=== PATIENT | female | born 1945 | race Caucasian/White ===

== ENCOUNTER → 2019-11-14 10:14 | Outpatient (BNVA) | payer MEDICARE, OTHER, SELFPAY | PROVIDERS: Family Provider Family Medicine; PCP Family Medicine; Visit Provider Family Medicine | DX: M25.552 Pain in left hip (principal) | CPT/HCPCS: 73502 ==

== ENCOUNTER 2019-11-14 13:48 | Outpatient (CLI) | payer MEDICARE, OTHER, SELFPAY ==
--- NOTE | 2019-11-14 13:30 | USCV_ITS ---
Sonya Yorklotte Age: 74 Gender: F : 1945 Exam Date: 11/14/2019 14:13 Ordering Phys: Vazquez Robins DO Technologist: Christopher Rawls Exam Location: [facility] [place] Indication: SWELLING HISTORY: Lower extremity swelling. PROCEDURES: Venous duplex imaging was performed in only the right lower extremity. The following venous structures were evaluated: common femoral vein, profunda vein, proximal portion of the greater saphenous vein, superficial femoral vein, and the popliteal vein. In addition, the posterior tibial and peroneal trunk were evaluated. Serial compression, augmentation maneuvers, and spectral Doppler flow evaluation were performed. FINDINGS: Normal 2-D Doppler and augmentation and compressibility throughout the lower extremity venous structures. Additional imaging through the proximal calf veins also reveals no thrombus. Limited evaluation of the greater saphenous vein is patent with no thrombus.. CONCLUSIONS Negative right lower extremity deep venous dopplerultrasound. Dr. Neha Campos MD (Electronically Signed) Final Date: 14 November 2019 15:15 S
== END 2019-11-14 13:49 | disposition home or self-care (01) ==
LOC: RAD 13:53
PROVIDERS: Family Provider Family Medicine; PCP Family Medicine; Visit Provider Family Medicine
DX: M79.89 Other specified soft tissue disorders (principal)
CPT/HCPCS: 93971

== ENCOUNTER 2020-01-04 06:00 | Outpatient (RCR) | payer MEDICARE, OTHER, SELFPAY | END 2020-01-29 23:59 | disposition home or self-care (01) | LOC: GPT 06:00 | PROVIDERS: Family Provider Family Medicine; PCP Family Medicine; Referring Provider Family Medicine; Visit Provider Family Medicine | DX: M25.552 Pain in left hip (principal); M25.652 Stiffness of left hip, not elsewhere classified | CPT/HCPCS: 97032; 97110; 97112; 97116; 97161; 97530; 97760 ==

== ENCOUNTER → 2020-01-18 14:00 | Outpatient (BNVA) | payer MEDICARE, OTHER, SELFPAY | PROVIDERS: Family Provider Family Medicine; PCP Family Medicine; Visit Provider Family Medicine | DX: R05 Cough (principal); E03.9 Hypothyroidism, unspecified | CPT/HCPCS: 84439; 84443 ==

== ENCOUNTER 2020-01-30 06:00 | Outpatient (RCR) | payer MEDICARE, OTHER, SELFPAY | END 2020-02-28 23:59 | disposition home or self-care (01) | LOC: GPT 06:00 | PROVIDERS: PCP Family Medicine; Visit Provider Family Medicine | DX: M25.552 Pain in left hip (principal); M25.652 Stiffness of left hip, not elsewhere classified | CPT/HCPCS: 80048; 97110; 97530 ==

== ENCOUNTER → 2020-06-11 14:00 | Outpatient (BNVA) | payer MEDICARE, OTHER, SELFPAY | PROVIDERS: PCP Family Medicine; Visit Provider Family Medicine | DX: M79.669 Pain in unspecified lower leg (principal); I82.4Z1 Acute embolism and thrombosis of unspecified deep veins of right distal lower extremity | CPT/HCPCS: 84550 ==

== ENCOUNTER 2020-07-11 11:20 | Outpatient (CLI) | payer MEDICARE, OTHER, SELFPAY ==
--- NOTE | 2020-07-11 11:36 | XR_ITS ---
WS: [id number] Chest with right rib detail, 07/11/2020 Clinical Data: R07.81 - Pleurodynia Comparison: PA and lateral chest, 09/22/2017. Findings: The lungs show no masses, or effusions. The heart is normal. No pneumonia or pneumothorax is seen. There is a small nodule at the right lung base unchanged. Aortic arch and descending aorta show tortu osity. The ribs are intact. No rib fractures seen. No subcutaneous emphysema is present. XR/XR ribs RT mn 3V w [id number] Impression: Negative chest with right rib detail.
== END 2020-07-11 11:21 | disposition home or self-care (01) ==
LOC: RAD 11:33
PROVIDERS: PCP Family Medicine; Visit Provider Family Medicine
DX: R07.81 Pleurodynia (principal)
CPT/HCPCS: 71101

== ENCOUNTER 2020-07-16 13:40 | Emergency (ER) | payer MEDICARE, OTHER, SELFPAY ==
[2020-07-16 14:00] VITALS: BP 119/74; PULSE 52; RESP 14; TEMP 36.8; O2SAT 94; BMI 35.5
--- NOTE | 2020-07-16 14:44 | W.ED.EXTPRO ---
HPI - Extremity Problem General: Chief complaint: Extremity Problem,Nontraumatic Stated complaint: phy ref/lumps in legs Time Seen by Provider: 07/16/20 14:44 History of Present Illness: HPI Narrative: Patient is a 75-year-old female comes to the ED with right lower extremity pain. Patient says symptoms started approximately 1 month ago after having a long car ride and traveling to [place]. She said since she started noticing that she was having some pain in the right calf with some swelling as well. She has been elevating her legs and says the swelling has went down but she still has tenderness to her right calf. Patient does have history of blood clots but is currently not on blood thinner and just takes aspirin daily. Denies any chest pain, shortness of breath, hemoptysis. Associated symptoms: Deny chest pain, fever(s) or rash Review of Systems Const: Denies: fever(s), chills or fatigue Eyes: Denies: change in vision or eye discomfort ENMT: Denies: throat pain, odynophagia, nasal discharge or nasal congestion Card: Denies: chest pain, palpitations, edema, swelling of feet/ankles, dyspnea on exertion or orthopnea Resp: Denies: dyspnea, productive cough or non-productive cough GI: Denies: abdominal pain, nausea, vomiting, diarrhea, constipation or hematochezia : Denies: flank pain, dysuria or hematuria Musc: Reports: extremity pain (Right leg?calf pain and swelling.) and extremity swelling (Right leg?calf swelling.); Denies: neck pain or back pain Skin/Breast: Denies: rash or new lesions Neuro: Denies: headache(s), numbness in extremities or weakness in extremities PFS ED PFSH: Social History Smoking and tobacco status: never smoked Alcohol intake: never Physical Exam Const: COMMON NORMALS: no acute distress, patient oriented x3 and alert GENERAL APPEARANCE: cooperative and comfortable HENMT: COMMON NORMALS: normocephalic HEAD & SCALP: normocephalic MOUTH: Normal oral and palatal mucosa present THROAT: posterior oropharynx normal and uvula midline Neck/C-Spine: COMMON NORMALS: supple GENERAL: Yes normal visual inspection Resp: COMMON NORMALS: normal respiratory effort, No retractions, No use of accessory muscles and clear to auscultation bilaterally AUSCULTATION: clear to auscultation bilaterally Cardio: COMMON NORMALS: regular rate, S1 normal heart sound present, S2 normal heart sound present, No gallops present (Cardio), No clicks present (Cardio) and No murmurs present (Cardio) RATE: regular rate RHYTHM: abnormal rhythm irregularly irregular HEART SOUNDS: S1 normal heart sound present and S2 normal heart sound present PERIPHERAL PULSES: dorsalis pedis present positive bilateral 1+ GI: COMMON NORMALS: Normal to inspection, nondistended, normoactive bowel sounds present, Soft to palpation, non-tender and no masses PALPATION: Yes Soft to palpation : COMMON NORMALS: Yes no CVA tenderness BLADDER/KIDNEY EXAM: Yes no CVA tenderness Back/Pelvis: COMMON NORMALS: no CVA tenderness Extremity: COMMON NORMALS: no pedal edema NARRATIVE EXTREMITY EXAM: Patient has 2 palpated nodules on right superior aspect of calf just behind the knee. Nodules are tender but no warmth or erythema. Nodules approximately 1 to 1.5 cm. Patient also had visible varicose veins on both right and left lower extremities. Neuro: COMMON NORMALS: patient oriented x3 and moves all extremities SENSORIUM/ORIENTATION: Yes alert Skin: GENERAL SKIN EXAM: dry skin Course Vital Signs: Vital signs: Vital Signs Temperature 98.2 F 07/16/20 14:00 Pulse Rate 52 L 07/16/20 14:00 Respiratory Rate 14 07/16/20 14:00 Blood Pressure 119/74 07/16/20 14:00 Pulse Oximetry 94 07/16/20 14:00 MDM - Extremity (Nontraumatic) MDM Narrative: Medical decision making narrative: Patient is a 75-year-old female comes to the ED with right calf pain and swelling. Patient has a history of blood clots but is not on any blood thinners currently. She denies any chest pain, shortness of breath or hemoptysis. Ultrasound venous duplex showed DVT in tibial vein. Patient was given Lovenox shot while here in the ED. She was sent home with a prescription for Lovenox and told to contact her PCP and set up an appointment within a week to reevaluate medical management for DVT treatment. Return ED precautions given. Patient understood agree with plan. Imaging Data^: US Vascular: Attestation: I personally reviewed and interpreted this imaging study as follows: Radiologist's impression: Ultrasound venous duplex of right lower extremity?prelim report superficial clots seen and also DVT identified as well. [address] [address] Ultrasound Report Signed Patient: Georgina York #: [id number] : 4Acct#:[id number] Age/Sex: 75 / FADM Date: 07/16/20 Loc: ERRoom/Bed: Attending Dr: Ordering Provider/Ordering MD: Juanito Arthur Date of Service: 07/16/20 Procedure(s): [place] [address] Accession Number(s): [id number] Report Number: [id number] Georgina York Age: 75 Gender: F : 1945 Exam Date: 07/16/2020 14:40 Ordering Phys: Juanito Arthur Technologist: Gi Byrne Exam Location: [facility] [place] Indication: LEG PAIN HISTORY: Lower extremity pain. PROCEDURES: Venous duplex imaging was performed in only the right lower extremity. The following venous structures were evaluated: common femoral vein, profunda vein, proximal portion of the greater saphenous vein, superficial femoral vein, and the popliteal vein. In addition, the posterior tibial and peroneal trunk were evaluated. Serial compression, augmentation maneuvers, and spectral Doppler flow evaluation were performed. FINDINGS: Partial thrombus seen within the anterial tibial vein near the peroneal trunk. Thrombus seen within superficial accessory vein below the knee. No additional DVT. CONCLUSIONS Anterior tibial vein DVT. Superficial thrombophlebitis below the knee. Dr. Pooja Regalado DO (Electronically Signed) Final Date: 16 July 2020 16:14 S Discharge Plan Discharge Patient Disposition: Home Clinical Impression: Deep vein thrombosis of lower extremity Qualifiers: Affected thrombotic vein of extremity: other lower extremity vein Chronicity: acute Laterality: right Qualified Code(s): I82.491 - Acute embolism and thrombosis of other specified deep vein of right lower extremity Condition: Stable Prescriptions: New Lovenox 150 mg/mL syringe 150 mg SUBCUT DAILY Qty: 10 RF: 0 No Action bisoprolol fumarate 5 mg tablet 5 mg PO DAILY RF: 0 cyanocobalamin (vitamin B-12) 1,000 mcg capsule 1,000 mcg PO DAILY RF: 0 PreserVision AREDS [id number] nrvb-ny-diuc capsule 1 cap PO BID RF: 0 Gaviscon 80-14.2 mg tablet,chewable 2 tab PO DAILY RF: 0 flecainide 50 mg tablet 50 mg PO Q12H RF: 0 allopurinol 100 mg tablet 100 mg PO DAILY Qty: 30 RF: 5 aspirin [Adult Low Dose Aspirin] 81 mg tablet,delayed release (DR/EC) 81 mg PO DAILY RF: 0 omega-3 fatty acids [Fish Oil Concentrate] 1,000 mg capsule 1,000 mg PO DAILY RF: 0 potassium chloride 10 mEq tablet extended release 10 meq PO DAILY RF: 0 furosemide 20 mg tablet 20 mg PO QAM RF: 0 levothyroxine 137 mcg tablet 137 mcg PO DAILY Qty: 90 RF: 3 Discharge Orders: Discharge Order (Routine); Ordered 07/16/20 Ordered By: Juanito Arthur Referrals: Vazquez Robins DO [Primary Care Provider] - Discharge Diet: Regular Discharge Activity: Resume usual activity Patient Instructions: Deep Venous Thrombosis (ED) Activity Restrictions/Additional Instructions: Follow-up with medical provider as directed. Contact your PCP and let them know that you are currently taking Lovenox and will need to be transitioned over to an oral anticoagulant within the next 5 to 7 days. Take medications as prescribed. Lovenox prescribed as 1 injection daily. Return to the ER or your medical provider if condition worsens. Please read and understand discharge instructions. If any questions, please ask. 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
[2020-07-16] MEDS: enoxaparin 100 mg/mL Syringe SUBCUT (16:02)
[2020-07-16] MEDS: enoxaparin 60 mg/0.6 mL Syringe 50 MG SUBCUT (16:03)
== END 2020-07-16 16:09 | disposition home or self-care (01) ==
PROVIDERS: Emergency Provider Physician Assistant; PCP Family Medicine
DX: I82.491 Acute embolism and thrombosis of other specified deep vein of right lower extremity (principal); Z79.82 Long term (current) use of aspirin
CPT/HCPCS: 12345; 93971; 96372; 99281; 99283; J1650

== ENCOUNTER 2020-08-14 12:46 | Outpatient (CLI) | payer MEDICARE, OTHER, SELFPAY ==
[2020-08-14 13:50] LABS: Basophils # 0.1 10^3/uL (0.0-0.1); Basophils % 0.9 %; Eosinophils # 0.1 10^3/uL (0.0-0.8); Eosinophils % 2.3 %; Hematocrit 40.9 % (37.0-47.0); Hemoglobin 12.7 g/dL (11.5-15.3); Lymphocytes # 2.2 10^3/uL (0.8-4.8); Lymphocytes % 38.1 %; Mean Corpuscular HGB Conc 31.1 g/dL (30.0-36.0); Mean Corpuscular Hemoglobin 29.5 pg (28.0-34.0); Mean Corpuscular Volume 94.9 fL (81-99); Mean Platelet Volume 9.9 fL (7.4-10.4); Monocytes # 0.6 10^3/uL (0.2-0.9); Monocytes % 10.6 %; Neutrophils % 47.9 %; Nucleated Red Blood Cells % 0 %; Platelet Count 279 10^3/cmm (130-400); Red Blood Count 4.31 10^6/uL (4.1-5.3); Red Cell Distribution Width 13.9 % (12.1-15.1); White Blood Count 5.6 10^3/uL (4.0-10.0)
[2020-08-14 14:12] LABS: NT Pro B Type Natriuretic Pept 266 pg/mL (0-450)
[2020-08-15 15:48] LABS: Anti-Double Strand DNA AB <1 IU/mL; Jo-1 Antibody <1.0 NEG AI (<1.0 NEG); SM/RNP Antibodies <1.0 NEG AI (<1.0 NEG); SS-B/LA IGG <1.0 NEG AI (<1.0 NEG); Scleroderma Ab(Scl-70) Ab <1.0 NEG AI (<1.0 NEG); Ss-A/Ro Igg <1.0 NEG AI (<1.0 NEG)
[2020-08-15 16:24] LABS: Alternaria Alternata (M6) Ige <0.10 kU/L; Alternaria Class 0; Bermuda Class 0; Bermuda Grass (G2) Ige <0.10 kU/L; Cat Dander (E1) Ige 0.32 kU/L; Cat Dander Class 0/1; Common Ragweed (Short) (W1) Ig <0.10 kU/L; D. Farinae Class 0; Dermatophagoides Class 0; Dermatophagoides Farinae (D2) <0.10 kU/L; Dermatophagoides Pteronyssinus <0.10 kU/L; Dog Dander Class 0/1; Elm (T8) Ige <0.10 kU/L; Elm Class 0; English Plantain (W9) Ige <0.10 kU/L; English Plantain Class 0; House Dust (Greer) (H1) Ige <0.10 kU/L; House Dust (Hollister- Stier) 0.16 kU/L; House Dust Class 0; House Dust Class 0/1; Immunoglobulin E 43 kU/L (<OR=114); Johnson Grass (G10) Ige <0.10 kU/L; Johnson Grass Cl 0; June Grass Class 0; June Grass(Kentucky Blue) (G8) <0.10 kU/L; Lamb'S Quarters (Goose Foot) <0.10 kU/L; Lamb'S Quarters Class 0; Maple (Box Elder) (T1) Ige <0.10 kU/L; Maple Class 0; Meadow Fescue (G4) Ige <0.10 kU/L; Meadow Fescue Class 0; Mucor Racemosus Class 0; Oak (T7) Ige <0.10 kU/L; Oak Class 0; Orchard Grass (Cocksfoot) (G3) <0.10 kU/L; Penicillium Class 0; Penicillium Notatum (M1) Ige <0.10 kU/L; Perennial Rye Grass (G5) Ige <0.10 kU/L; Perennial Rye Grass Class 0; Ragweeed Class 0; Rough Marsh Elder (W16) Ige <0.10 kU/L; Rough Marsh Elder Class 0; Sweet Vernal Class 0; Sweet Vernal Grass (G1) Ige <0.10 kU/L; Timothy Grass (G6) Ige <0.10 kU/L; Timothy Grass Class 0
[2020-08-16 22:08] LABS: Aspergillus Fumigatus, Igg Ab, 92.4 mg/L (<=102)
[2020-08-17 19:58] LABS: Aspergillus AG,EIA,Serum NOT DETECTED; Aspergillus Galactomannan Inde <0.50
[2021-10-22 08:39] LABS: Cytology Sputum (BBPL) See Report
== END 2020-08-14 12:47 | disposition home or self-care (01) ==
PROVIDERS: PCP Family Medicine; Visit Provider Internal Medicine Pulmonary Disease
DX: R05 Cough (principal)
CPT/HCPCS: 36415; 82785; 83880; 85025; 86003; 86225; 86235; 87305; 88112

== ENCOUNTER 2020-08-14 14:03 | Outpatient (CLI) | payer MEDICARE, OTHER, SELFPAY ==
--- NOTE | 2020-08-14 14:45 | CT_ITS ---
WS: [id number] CT scan of the chest without IV contrast, additional two-dimensional coronal and sagittal reconstruct ion was performed. Additional prone and supine chest 2 views with inspiration were performed. 020 Clinical Data: TO RULE OUT INTERSITIAL LUNG DISEASE Comparison: CT chest, 10/06/2017. DLP: 966.[address] scans at [facility] use at least one of these dose optimization techniques: automat ed exposure control; mA and/or kV adjustment per patient size (includes targeted exams where dose is matched to clinical indication); or iterative reconstruction. Findings: No air trapping could be seen. There was no evidence of any pneumonia or parenchymal disease. No pneu mothorax was seen. There are no blebs. No evidence of restrictive disease was seen. No nodules, masses or effusions are seen. The heart size is normal with no pericardial effusion. The pulmonary arterial system and thoracic aorta demonstrate no abnormalities or dilatations. There is no axillary or significant mediastinal adenopathy. The upper abdomen shows no abnormalities. Moderate degenerative arthritic change and degenerative dis c disease of the thoracic spine is seen. CT/CT chest wo con [id number] Impression: 1. Negative high-resolution CT scan of the chest with no evidence of air trappi ng, emphysema, parenchymal disease or restricted airway disease. 2. Negative for acute cardiopulmonary disease.
== END 2020-08-14 14:04 | disposition home or self-care (01) ==
LOC: RADWPI 14:06
PROVIDERS: PCP Family Medicine; Visit Provider Internal Medicine Pulmonary Disease
DX: R05 Cough (principal)
CPT/HCPCS: 36415; 71250; 82785; 83880; 85025; 86003; 86225; 86235; 87305

== ENCOUNTER 2020-08-28 09:50 | Outpatient (CLI) | payer MEDICARE, OTHER, SELFPAY ==
--- NOTE | 2020-08-28 10:32 | PFTS_ITS ---
Date of Study:08/28/20 Date of Dictation: MECHANICS: Forced vital capacity (FVC) is . Forced expiratory volume in one second (FEV1) is . FEV1/FVC is . FLOW VOLUME LOOP: . LUNG VOLUMES: Total lung capacity (TLC) is . Residual volume (RV) is . DIFFUSING CAPACITY FOR CARBON MONOXIDE: . INTERPRETATION: The pulmonary function tests are . mechanics and lung volumes. Gas exchange (DLCO) is . MTDD
[2020-08-28 10:37] VITALS: BP 124/68; BP 132/69
--- NOTE | 2020-08-28 12:49 | PFTS_ITS ---
Date of Study:08/28/2020 Date of Dictation: MECHANICS: Forced vital capacity (FVC) is normal. Forced expiratory volume in one second (FEV1) is normal. FEV1/FVC is normal. FLOW VOLUME LOOP: Normal. LUNG VOLUMES: Not measured DIFFUSING CAPACITY FOR CARBON MONOXIDE: Not measured. INTERPRETATION: The spirometry is normal. In fact, the patient has supranormal FEV1 and FVC values. MTDD
== END 2020-08-28 09:51 | disposition home or self-care (01) ==
LOC: RT 09:50
PROVIDERS: PCP Family Medicine; Visit Provider Internal Medicine Pulmonary Disease
DX: R05 Cough (principal)
CPT/HCPCS: 94060; 94618

== ENCOUNTER 2020-09-19 09:13 | Outpatient (CLI) | payer MEDICARE, OTHER, SELFPAY ==
--- NOTE | 2020-09-19 09:30 | USCV_ITS ---
Georgina York Age: 75 Gender: F : 1945 Exam Date: 09/19/2020 09:43 Ordering Phys: Abdoul Back M.D ([email or web address]) Technologist: Christopher Rawls Exam Location: [facility] – [place] Indication: CHRONIC DIASTOLIC HEART FAILURE BP: 108 / 65 HR: 53 Rhythm: Sinus Technical Quality: Fair MEASUREMENTS (Male / Female) Normal Values 2D ECHO LV Diastolic Diameter PLAX 3.9 cm 4.2 - 5.9 / 3.9 - 5.3 cm LV Systolic Diameter PLAX 2.7 cm IVS Diastolic Thickness 1.2 cm 0.6 - 1.0 / 0.6 - 0.9 cm IVS Systolic Thickness 1.6 cm LVPW Diastolic Thickness 1.4 cm 0.6 - 1.0 / 0.6 - 0.9 cm LVPW Systolic Thickness 2.3 cm LVOT Diameter 2.1 cm LV Ejection Fraction 2D Teich 59.0 % LV Ejection Fraction MOD 2C 51.6 % LV Ejection Fraction 2C AL 51.9 % LA Diameter 3.9 cm LA Width 4.2 cm LA Height 5.2 cm RA Width 4.0 cm RA Height 6.0 cm Aorta at Sinotubular Diameter 2.8 cm M-MODE LV Diastolic Diameter MM 6.5 cm 4.2 - 5.9 / 3.9 - 5.3 cm LV Systolic Diameter MM 4.1 cm LV Ejection Fraction MM Teich 65.4 % IVS Diastolic Thickness MM 1.0 cm 0.6 - 1.0 / 0.6 - 0.9 cm IVS Systolic Thickness MM 1.7 cm LVPW Diastolic Thickness MM 1.0 cm 0.6 - 1.0 / 0.6 - 0.9 cm LVPW Systolic Thickness MM 2.1 cm Aortic Annulus Diameter 4.0 cm LA Ao Ratio MM 1.0 MV E Point Septal Separation 0.7 cm DOPPLER AV Peak Velocity 146.3 cm/s LVOT Peak Velocity 96.7 cm/s AV Area Cont Eq vti 2.5 cm squared AV Area Cont Eq pk 2.3 cm squared MV Area PHT 2.7 cm squared Mitral E to A Ratio 0.8 MV E' Velocity 37.5 cm/s Mitral E to MV E' Ratio 5.1 Mitral E to LV E' Lateral Ratio 5.3 Mitral E to LV E' Septal Ratio 4.9 TR Peak Velocity 279.4 cm/s TR Peak Gradient 31.2 mmHg TR Mean Velocity 196.2 cm/s TR Mean Gradient 15.9 mmHg TR Velocity Time Integral 89.1 cm TV Peak E Velocity 106.0 cm/s Right Atrial Pressure 3.0 mmHg Pulmonary Artery Systolic Pressu 34.2 mmHg PV Peak Velocity 68.0 cm/s RV Acceleration Time 0.2 s RV Ejection Time 0.3 s RV AcT/ET 0.5 FINDINGS Left Ventricle Normal left ventricular size and systolic function, EF 66 %. No regional wall motion abnormalities. Mild left ventricular hypertrophy. Grade I/IV diastolic dysfunction (abnormal relaxation filling pattern), normal to mildly elevated filling pressures. Right Ventricle The right ventricle is normal in size and function. Right Atrium Mildly increased right atrial size. Left Atrium Mildly increased left atrial size. Mitral Valve Mild mitral valve regurgitation. Aortic Valve Minimally thickened aortic valve Tricuspid Valve Moderate tricuspid valve regurgitation. Pulmonic Valve Trace pulmonary valve regurgitation. Pericardium No pericardial effusion. Aorta Plaque seen in the ascending aorta. CONCLUSIONS Normal left ventricular size and systolic function, EF 66 %. No regional wall motion abnormalities. Mild left ventricular hypertrophy. Grade I/IV diastolic dysfunction (abnormal relaxation filling pattern), normal to mildly elevated filling pressures. Mild biatrial enlargement. Moderate tricuspid valve regurgitation. Estimated pulmonary artery peak systolic pressure of 34 mmHg Mild mitral valve regurgitation. There is no pericardial effusion. There are no intracardiac masses. No previous study is available for comparison. Dr Basim Fry MD FAC (Electronically Signed) Final Date: 20 September 2020 09:55 S
== END 2020-09-19 09:14 | disposition home or self-care (01) ==
LOC: US 09:17
PROVIDERS: PCP Family Medicine; Visit Provider Internal Medicine
DX: I50.32 Chronic diastolic (congestive) heart failure (principal); I08.1 Rheumatic disorders of both mitral and tricuspid valves
CPT/HCPCS: 93306

== ENCOUNTER 2020-09-27 12:52 | Outpatient (CLI) | payer MEDICARE, OTHER, SELFPAY | END 2020-09-27 12:53 | disposition home or self-care (01) | LOC: LAB 12:55 | PROVIDERS: PCP Family Medicine; Visit Provider Internal Medicine Pulmonary Disease | DX: R05 Cough (principal) | CPT/HCPCS: 36415; 86331; 86606; 86609 ==

== ENCOUNTER → 2021-01-23 14:35 | Outpatient (BNVA) | payer MEDICARE, OTHER, SELFPAY | PROVIDERS: PCP Family Medicine; Visit Provider Family Medicine | DX: E03.9 Hypothyroidism, unspecified (principal); R19.4 Change in bowel habit; M79.673 Pain in unspecified foot | CPT/HCPCS: 36415; 84439; 84443 ==

== ENCOUNTER → 2021-07-17 14:05 | Outpatient (BNVA) | payer MEDICARE, OTHER, SELFPAY | PROVIDERS: PCP Family Medicine; Visit Provider Podiatrist Foot & Ankle Surgery | DX: M79.671 Pain in right foot (principal); M21.41 Flat foot [pes planus] (acquired), right foot | CPT/HCPCS: 73630 ==

== ENCOUNTER 2021-10-30 13:24 | Outpatient (CLI) | payer MEDICARE, OTHER, SELFPAY ==
--- NOTE | 2021-10-30 13:46 | CT_ITS ---
WS: [id number] CT CHEST WITHOUT INTRAVENOUS CONTRAST HISTORY: R05 - Cough TECHNIQUE: Contiguous 5 mm axial imaging performed on the thorax. Coronal and sagittal reformats are submitted. All CT scans at [facility] use at least one of these dose optimization techniques: automated exposure control; mA and/or kV adjustment per patient size (includes targeted exams where dose is matched to clinical indication); or iterative reconstruction. CONTRAST: None DLP: 735.37 mGy.cm COMPARISON: 08/14/2020 Lungs and central airway: 2 mm nodule LEFT upper lobe, image 19 series 6 stable since 2018. 2 mm nodu le along the RIGHT major fissure towards the upper lobe is stable. Mild dependent changes at the LEFT lung base. No bronchiectasis or honeycombing. Mild pulmonary hyperexpansion. Pleura: Normal. No pleural effusion. Heart and pericardium: Mild cardiomegaly with no pericardial effusion. Mediastinum and david: No mediastinum or hilar adenopathy. Vessels: Normal size aortic and pulmonary artery. No coronary artery calcifications. Chest wall and lower neck: No soft tissue masses. Upper abdomen: Noncontrast evaluation of the abdominal structures demonstrates no abnormality. No adr enal mass. Osseous structures: Mild increase in thoracic kyphosis. Disc spaces are narrowed throughout. No fract ures. CT/CT chest wo con [id number] IMPRESSION: 1. No suspicious mass or pulmonary nodules. 2. No pneumonia. 3. Mild pulmonary hyperexpansion.
== END 2021-10-30 13:25 | disposition home or self-care (01) ==
LOC: RAD 13:24
PROVIDERS: PCP Family Medicine; Visit Provider Family Medicine
DX: R05.9 Cough, unspecified (principal)
CPT/HCPCS: 71250

== ENCOUNTER → 2022-01-07 12:41 | Outpatient (BNVA) | payer MEDICARE, OTHER, SELFPAY | PROVIDERS: PCP Family Medicine; Visit Provider Internal Medicine | DX: I48.91 Unspecified atrial fibrillation (principal); I82.441 Acute embolism and thrombosis of right tibial vein; I50.32 Chronic diastolic (congestive) heart failure; E03.9 Hypothyroidism, unspecified | CPT/HCPCS: 99214 ==

== ENCOUNTER → 2022-01-24 08:34 | Outpatient (BNVA) | payer MEDICARE, OTHER, SELFPAY | PROVIDERS: PCP Family Medicine; Visit Provider Family Medicine | DX: I50.9 Heart failure, unspecified (principal); E03.9 Hypothyroidism, unspecified; M10.9 Gout, unspecified | CPT/HCPCS: 80053; 80061; 84439; 84443; 84550; 85025 ==

== ENCOUNTER 2022-03-09 06:50 | Emergency (ER) | payer MEDICARE, OTHER, SELFPAY ==
--- NOTE | 2022-03-09 06:55 | ED_ITS ---
HPI - Extremity Injury (Upper) General: Chief Complaint: Extremity Injury, Upper Stated Complaint: Right wrist pain Time Seen by Provider: 03/09/22 06:54 History of Present Illness: Ms. York is a 76-year-old right handed lady who presents to the emergency department due to fall. She reports yesterday tripping on a walk which she typically takes and landed on her left knee and hip. She did not initially recall hand or wrist pain on the right side however since that time has had increased pain despite resolution of other pain. Denies preceding lightheadedness, dizziness, chest pain, shortness of breath. No head strike or loss of consciousness. She tried zxnv-ibh-uisymph medications without significant relief. Intensity symptoms is moderate to severe and throbbing and shooting pain. Denies paresthesias. Denies history of prior wrist injury on this extremity. No other specific changes in health, exacerbating, or alleviating factors identified. Onset (ago): day(s) Other injuries: none Severity: moderate Exacerbating factors: movement of extremity Review of Systems General: Reports: 10 or more systems reviewed and unremarkable except in HPI and below PFSH ED PFSH: Medical History GERD (gastroesophageal reflux disease) Surgical History H/O total hysterectomy H/O vascular surgery History of cataract extraction History of foot surgery left History of tonsillectomy History of total knee arthroplasty bilateral Social History Smoking and tobacco status: never smoked Second hand smoke exposure: Yes Smoking risk assessment/counseling performed?: No Alcohol intake: never Lives independently: Yes Household members: spouse Housing: House Marital status: Current occupational status: retired Pets and animals: No History of recent travel: No Current gender identity: Female Special lima needs: No Physical Exam Const: COMMON NORMALS: alert GENERAL APPEARANCE: cooperative and well developed HENMT: COMMON NORMALS: normocephalic and atraumatic HEAD & SCALP: normocephalic and atraumatic Eye: COMMON NORMALS: conjunctivae normal CONJUNCTIVA: Yes conjunctivae normal SCLERA: sclerae normal Neck/C-Spine: COMMON NORMALS: supple GENERAL: Yes trachea midline Resp: COMMON NORMALS: normal respiratory effort EFFORT & INSPECTION: Yes able to speak in complete sentences Cardio: COMMON NORMALS: regular rate and regular rhythm RATE: regular rate RHYTHM: regular rhythm GI: COMMON NORMALS: Soft to palpation PALPATION: Yes Soft to palpation and No Tenderness to palpation present (GI) PERCUSSION: normal to percussion Extremity: NARRATIVE EXTREMITY EXAM: Wrist tenderness palpation more significant on radial aspect. No snuffbox tenderness. Distal CMS intact. Limited range of motion secondary to pain. No obvious deformity. No contusion or overlying skin changes GENERAL: Yes normal exam except as noted and No edema Neuro: COMMON NORMALS: moves all extremities SENSORIUM/ORIENTATION: Yes alert and No Orientation impaired Psych: COMMON NORMALS: mental status grossly normal and Normal thought process present THOUGHT PROCESS: Normal thought process present Course ED course: - Patient was seen and evaluated by me at bedside -Vital signs obtained - Initial evaluation notable for exam as above. analgesia given -Xrays personally interpreted by me - Imaging notable for no acute fracture, age-indeterminate scapholunate ligamentous injury - Upon serial reexamination after treatment the patient was improved - Based on patient history, evaluation, and testing as interpreted the most likely cause of the patient's condition is fall with wrist pain - The results of ED evaluation were discussed with the patient including prescriptions and/or symptomatic cares (if applicable) including appropriate and responsible use, followup plan, and return precautions. The patient verbalized understanding and felt safe for discharge. - Patient discharged in satisfactory condition. Note: Click bubbles or prepopulated villalta in note writing are used for assistance with data collection and billing and are inherently more limited than narrative and other text portions of this note. Please use narrative for additional clinical history and defer to narrative/free test for any case of contradictory information. If information appears in only free text or click bubble it should be considered present or absent as reported. Please contact note writer technical publications for clarifications of clinical information or contradictory information. MDM is a brief summary, contradictory or erroneous seeming information should be clarified and full note should be reviewed. Vital Signs: Vital signs: Vital Signs Temperature 98 F 03/09/22 06:56 Pulse Rate 57 L 03/09/22 09:53 Respiratory Rate 22 H 03/09/22 06:56 Blood Pressure 156/77 03/09/22 09:53 Pulse Oximetry 97 03/09/22 09:53 MDM - Extremity Injury (Upper) Medical Decision Making 76-year-old lady presenting with mechanical fall and wrist pain. X-rays with age-indeterminate scapholunate ligamentous injury. Patient placed in splint and satisfactory for outpatient orthopedic follow-up. Medical Records I reviewed the patient's medical records. Lab Data I reviewed the patient's lab results. Radiology Impressions Wrist X-Ray 03/09/22 07:08 IMPRESSION: 1. Primary osteoarthritis. 2. No acute bony fracture identified. 3. Scapholunate ligamentous injury, indeterminate age. Clinical correlation is recommended. Discharge Plan Discharge Patient Disposition: Home Clinical Impression: Fall, Acute wrist pain, Scapholunate ligament injury, no instability Condition: Stable Prescriptions: New oxycodone 5 mg tablet 5 mg PO Q4H PRN (Reason: pain) Qty: 20 0RF No Action PreserVision AREDS [id number] snyc-pc-bnne capsule 1 cap PO BID 0RF Eliquis 5 mg tablet 5 mg PO BID Qty: 180 3RF furosemide 20 mg tablet 20 mg PO QAM Qty: 90 3RF potassium chloride 10 mEq tablet extended release 10 meq PO DAILY Qty: 90 3RF omega-3 fatty acids [Fish Oil Concentrate] 1,000 mg capsule 1,000 mg PO DAILY 0RF omeprazole 20 mg tablet,delayed release (DR/EC) 20 mg PO BID 0RF cholecalciferol (vitamin D3) 50 mcg (2,000 unit) capsule 50 mcg PO DAILY 0RF (DME) custom orthotics See Rx Instructions .ROUTE .MEDSUPPLY Qty: 1 0RF Rx Instructions: As directed naproxen 500 mg tablet 500 mg PO BID Qty: 60 0RF (DME) custom orthotics See Rx Instructions .ROUTE .MEDSUPPLY Qty: 1 0RF Rx Instructions: As directed levothyroxine 137 mcg tablet 137 mcg PO DAILY Qty: 90 3RF (DME) Thumb spica (off shelf) See Rx Instructions .Route .MEDSUPPLY Qty: 1 0RF Rx Instructions: As directed bisoprolol fumarate 5 mg tablet 5 mg PO DAILY Qty: 90 3RF Discharge Orders: Discharge ED (Routine); Ordered 03/09/22 Ordered By: Austyn Rodriguez Referrals: Vazquez Robins, [Primary Care Provider] - Discharge Diet: Usual diet Discharge Activity: Increase activity as tolerated Patient Instructions: Wrist Injury (ED), Splint Care (ED), Opioid Safety Activity Restrictions/Additional Instructions: Thank you for visiting the emergency department. You were seen and evaluated for fall with wrist injury. The exact cause of your symptoms is unclear though there may be a ligamentous injury in your wrist. I will message case management for follow-up. You were placed in splint, please wear this until follow-up. You should use Tylenol and ibuprofen for pain control however please do not exceed the daily recommended dosage. I will also prescribe oxycodone, as discussed this can cause sedation which you should be cautious with. Additional common side effects including balance difficulty and constipation. If taking ibuprofen please continue your omeprazole. Please do not exceed the daily recommended dosage of any medication and please keep in mind that many namebrand medications contain the same active ingredients. Return to the emergency department for uncontrolled pain, any sensory or motor changes, changes in the color of your fingers, or anything else that you are concerned about a feel needs emergency department evaluation. Coding Level of Care Code ED Automotive Drivability Technician for Sophie Mancini Exam Comprehensive
[2022-03-09 06:56] VITALS: BP 163/88; PULSE 66; RESP 22; TEMP 36.6; O2SAT 97; BMI 35.5
[2022-03-09 07:01] VITALS: PULSE 67; O2SAT 99
--- NOTE | 2022-03-09 07:08 | XRR_ITS ---
PROCEDURE INFORMATION: Exam: XR Right Wrist Exam date and time: 03/09/2022 7:22 AM Age: 76 years old Clinical indication: Injury or trauma; Fall; Blunt trauma (contusions or hematomas); Wrist; Right; Additional info: Fall, radial side pain TECHNIQUE: Imaging protocol: Radiologic exam of the Right wrist. Views: Frontal, lateral, and oblique, 3 views. COMPARISON: No relevant prior studies available. FINDINGS: Bones/joints: There is narrowing, subchondral sclerosis and marginal hypertrophy of the medial first carpometacarpal articulation. Articular marginal hypertrophy and subchondral sclerosis of the trapezioscaphoid articulation. No acute bony abnormality identified. The radiocarpal, intercarpal and carpometacarpal alignment is unremarkable. Scapholunate interval widening to 2.8 mm. 5.6 mm lateral lunate cancellous bone cyst. 8.5 mm proximal capitate cancellous bone cyst. Soft tissues: Anterior and posterior moderate soft tissue swelling. XR/XR wrist RT min 3V* [id number] IMPRESSION: 1. Primary osteoarthritis. 2. No acute bony fracture identified. 3. Scapholunate ligamentous injury, indeterminate age. Clinical correlation is recommended.
[2022-03-09] MEDS: morphine 4 mg/mL SDV 1 mL IM (07:23)
[2022-03-09 08:00] VITALS: BP 114/86; PULSE 60; O2SAT 100
[2022-03-09] MEDS: oxyCODONE 5 mg IR Tab/Cap PO (08:11)
[2022-03-09] MEDS: ketorolac 30 mg/mL INJ IM (08:11)
[2022-03-09] MEDS: acetaminophen 500 mg Tablet 1000 MG PO (08:11)
[2022-03-09 09:00] VITALS: BP 134/60; PULSE 57; O2SAT 96
[2022-03-09 09:53] VITALS: BP 156/77; PULSE 57; O2SAT 97
--- NOTE | 2022-03-11 12:38 | DCPLANNER ---
Addendum entered by Selena Huntley 03/24/22 17:28: Patient had a follow up appointment scheduled for 03.13.22 with Angus Rodríguez at ortho - patient did attend appointment. Original Note: design project manager had message to schedule a follow up appointment for patient with ortho. design project manager sent patients information to the front office staff at ortho. Patients information will be printed and reviewed. Clinic will call patient with appointment information.
== END 2022-03-09 09:50 | disposition home or self-care (01) ==
PROVIDERS: Emergency Provider Emergency Medicine; PCP Family Medicine
DX: S69.81XA Other specified injuries of right wrist, hand and finger(s), initial encounter (principal); Z79.01 Long term (current) use of anticoagulants; Z77.22 Contact with and (suspected) exposure to environmental tobacco smoke (acute) (chronic); W01.0XXA Fall on same level from slipping, tripping and stumbling without subsequent striking against object, initial encounter
CPT/HCPCS: 29125; 73110; 96372; 99284; J1885; J2270

== ENCOUNTER → 2022-03-13 08:05 | Outpatient (BNVA) | payer MEDICARE, OTHER, SELFPAY | PROVIDERS: PCP Family Medicine; Referring Provider Emergency Medicine; Visit Provider Physician Assistant | DX: M18.11 Unilateral primary osteoarthritis of first carpometacarpal joint, right hand (principal); M25.539 Pain in unspecified wrist | CPT/HCPCS: 73110; 99203 ==

== ENCOUNTER 2022-03-13 11:23 | Outpatient (CLI) | payer MEDICARE, OTHER, SELFPAY | END 2022-03-13 11:24 | disposition home or self-care (01) | LOC: SPT 11:24 | PROVIDERS: PCP Family Medicine; Visit Provider Physician Assistant | DX: Z46.89 Encounter for fitting and adjustment of other specified devices (principal); S63.591D Other specified sprain of right wrist, subsequent encounter; X58.XXXD Exposure to other specified factors, subsequent encounter | CPT/HCPCS: 97760; L3809 ==

== ENCOUNTER → 2022-03-27 08:30 | Outpatient (BNVA) | payer MEDICARE, OTHER, SELFPAY | PROVIDERS: PCP Family Medicine; Visit Provider Physician Assistant | DX: M19.031 Primary osteoarthritis, right wrist; M16.12 Unilateral primary osteoarthritis, left hip; M70.62 Trochanteric bursitis, left hip; M25.562 Pain in left knee | CPT/HCPCS: 73100; 73502; 73590; 99214 ==

== ENCOUNTER → 2022-07-22 15:29 | Outpatient (BNVA) | payer MEDICARE, OTHER, SELFPAY | PROVIDERS: PCP Family Medicine; Visit Provider Internal Medicine | DX: I48.91 Unspecified atrial fibrillation (principal); Z79.01 Long term (current) use of anticoagulants; I82.441 Acute embolism and thrombosis of right tibial vein; I50.32 Chronic diastolic (congestive) heart failure; E03.9 Hypothyroidism, unspecified | CPT/HCPCS: 99213 ==

== ENCOUNTER 2022-11-15 20:51 | Emergency (ER) | payer MEDICARE, OTHER, SELFPAY ==
[2022-11-15 21:18] VITALS: BP 159/88; PULSE 64; RESP 20; TEMP 36.8; O2SAT 96; BMI 37.1
--- NOTE | 2022-11-15 21:39 | XRR_ITS ---
PROCEDURE INFORMATION: Exam: XR Left Humerus Exam date and time: 11/15/2022 9:44 PM Age: 77 years old Clinical indication: Injury or trauma; Fall; Blunt trauma (contusions or hematomas); Arm, upper; Left TECHNIQUE: Imaging protocol: Radiologic exam of the left humerus. Views: 2 or more views. COMPARISON: No relevant prior studies available. FINDINGS: Bones/joints: There is a mildly displaced comminuted fracture of the left proximal humerus. No evidence of intra-articular extension. No dislocation. Swelling of the surrounding soft tissues is present. Soft tissues: See Bones/joints finding. XR/[place] [id number] IMPRESSION: Mildly displaced comminuted fracture of the left proximal humerus.
[2022-11-15 21:45] VITALS: RESP 16; O2SAT 95
[2022-11-15] MEDS: morphine 4 mg/mL SDV 1 mL IM (21:45)
--- NOTE | 2022-11-15 22:01 | W.ED.FALL ---
HPI - Fall General: Chief Complaint: Fall Stated Complaint: Left should pain, fall Time Seen by Provider: 11/15/22 21:21 History of Present Illness: This 77-year-old female presents to the ER for evaluation of left arm pain following a fall. She was carrying boxes at home when she tripped and landed on the left side of the body. Patient denies head injury or loss of consciousness. She was able to get up, mobilize without support and she denies any other additional injuries. She is clinically stable. Review of Systems General: Reports: 10 or more systems reviewed and unremarkable except in HPI and below Musc: Reports: other (Pain with limitation of movement of left arm.) PFSH ED PFSH: Medical History GERD (gastroesophageal reflux disease) Surgical History H/O total hysterectomy H/O vascular surgery History of cataract extraction History of foot surgery left History of tonsillectomy History of total knee arthroplasty bilateral Social History Smoking and tobacco status: never smoked Second hand smoke exposure: Yes Smoking risk assessment/counseling performed?: No Alcohol intake: never Lives independently: Yes Household members: spouse Housing: House Marital status: Current occupational status: retired Pets and animals: No Current gender identity: Female Special lima needs: No Physical Exam Const: COMMON NORMALS: no acute distress, patient oriented x3, no limitations and alert HENMT: COMMON NORMALS: normocephalic HEAD & SCALP: normocephalic Neck/C-Spine: COMMON NORMALS: full ROM and supple Chest: COMMONS NORMALS: normal inspection of the chest Resp: COMMON NORMALS: normal respiratory effort, No retractions, No use of accessory muscles and clear to auscultation bilaterally AUSCULTATION: clear to auscultation bilaterally Cardio: COMMON NORMALS: regular rate, regular rhythm and No murmurs present (Cardio) RATE: regular rate RHYTHM: regular rhythm GI: COMMON NORMALS: Normal to inspection, nondistended, normoactive bowel sounds present and non-tender : COMMON NORMALS: Yes no CVA tenderness BLADDER/KIDNEY EXAM: Yes no CVA tenderness Back/Pelvis: COMMON NORMALS: no CVA tenderness and no thoracic nor lumbar tenderness Extremity: GENERAL: Yes normal exam except as noted OTHER: Limitation of movement of left arm. No distal neurovascular deficit. Neuro: COMMON NORMALS: patient oriented x3 and no focal motor deficits SENSORIUM/ORIENTATION: Yes alert Psych: COMMON NORMALS: mental status grossly normal and cooperative Course Vital Signs: Vital signs: Vital Signs Temperature 98.2 F 11/15/22 21:18 Pulse Rate 64 11/15/22 21:18 Respiratory Rate 16 11/15/22 21:45 Blood Pressure 159/88 11/15/22 21:18 Pulse Oximetry 95 11/15/22 21:45 Oxygen Delivery Me thod 11/15/22 21:18 MDM - Fall Medical Decision Making Medical decision making: History as above. X-ray reveals a mildly displaced comminuted fracture of the left proximal humerus. Case discussed with Dr. Munoz who advised arm sling and discharging patient home. He will follow-up with patient in the office. Patient was given a prescription for pain medications. Lab Data Radiology Impressions Humerus X-Ray 11/15/22 21:39 IMPRESSION: Mildly displaced comminuted fracture of the left proximal humerus. Discharge Plan Discharge Patient Disposition: Home Clinical Impression: Fracture of humerus, proximal, left, closed Condition: Stable Prescriptions: New hydrocodone-acetaminophen 5-325 mg tablet 1 tab PO Q6H PRN (Reason: pain) Qty: 20 0RF No Action PreserVision AREDS [id number] khdj-es-pjnn capsule 1 cap PO BID omega-3 fatty acids [Fish Oil Concentrate] 1,000 mg capsule 1,000 mg PO DAILY omeprazole 20 mg tablet,delayed release (DR/EC) 20 mg PO BID cholecalciferol (vitamin D3) 50 mcg (2,000 unit) capsule 50 mcg PO DAILY naproxen 500 mg tablet 500 mg PO BID Qty: 60 0RF levothyroxine 137 mcg tablet 137 mcg PO DAILY Qty: 90 3RF (DME) Thumb spica (off shelf) See Rx Instructions .Route .MEDSUPPLY Qty: 1 0RF Rx Instructions: As directed Eliquis 5 mg tablet 5 mg PO BID Qty: 180 3RF furosemide 20 mg tablet 20 mg PO QAM Qty: 90 3RF potassium chloride 10 mEq tablet extended release 10 meq PO DAILY Qty: 90 3RF bisoprolol fumarate 5 mg tablet 5 mg PO DAILY Qty: 90 3RF Discharge Orders: Discharge ED (Routine); Ordered 11/15/22 Ordered By: Sandra Tijerina Referrals: Vazquez Robins DO [Primary Care Provider] - Discharge Diet: Usual diet Discharge Activity: Resume usual activity Patient Instructions: Opioid Safety, Pain Management Activity Restrictions/Additional Instructions: Take Pedro as needed for pain. Utilize the arm sling provided until you see the orthopedic surgeon. Call Dr. Souza's office at [phone] to schedule a follow-up appointment. Return if you develop new or worsening symptoms. Coding Level of Care Code ED Ice Cream Machine Operator for Sophie Mancini
--- NOTE | 2022-11-15 22:59 | PC.NURSE ---
Patient sent home with [place] per MD order.
[2022-11-15 23:11] VITALS: BP 130/73; PULSE 16; RESP 16; O2SAT 95
--- NOTE | 2022-11-17 09:30 | DCPLANNER ---
Addendum entered by Selena Huntley 11/19/22 08:42: Patient had a follow up appointment scheduled with ortho - patient did attend appointment. Addendum entered by Selena Huntley 11/18/22 08:23: Patient has a follow up appointment scheduled for Friday, November 18, 2022 at 3:45 with Angus at ortho. Clinic will call patient with appointment information. Original Note: manager wellness had message to schedule a follow up appointment for patient with ortho. manager wellness sent patients information to the front office staff at ortho. Patients information will be printed and reviewed. Clinic will call patient with appointment information.
== END 2022-11-15 23:08 | disposition home or self-care (01) ==
PROVIDERS: Emergency Provider Family Medicine; PCP Family Medicine
DX: S42.202A Unspecified fracture of upper end of left humerus, initial encounter for closed fracture (principal); Z79.01 Long term (current) use of anticoagulants; W01.0XXA Fall on same level from slipping, tripping and stumbling without subsequent striking against object, initial encounter
CPT/HCPCS: 73060; 96372; 99284; J2270

== ENCOUNTER → 2022-11-18 16:05 | Outpatient (BNVA) | payer MEDICARE, OTHER, SELFPAY | PROVIDERS: PCP Family Medicine; Visit Provider Physician Assistant | DX: S42.202A Unspecified fracture of upper end of left humerus, initial encounter for closed fracture (principal); X58.XXXA Exposure to other specified factors, initial encounter | CPT/HCPCS: 73060; 99213 ==

== ENCOUNTER → 2022-12-02 13:33 | Outpatient (BNVA) | payer MEDICARE, OTHER, SELFPAY | PROVIDERS: PCP Family Medicine; Visit Provider Physician Assistant | DX: S42.202A Unspecified fracture of upper end of left humerus, initial encounter for closed fracture (principal); W01.198A Fall on same level from slipping, tripping and stumbling with subsequent striking against other object, initial encounter | CPT/HCPCS: 73060; 99213 ==

== ENCOUNTER → 2022-12-15 13:32 | Outpatient (BNVA) | payer MEDICARE, OTHER, SELFPAY | PROVIDERS: PCP Family Medicine; Visit Provider Family Medicine | DX: M10.9 Gout, unspecified (principal); E03.9 Hypothyroidism, unspecified; I50.9 Heart failure, unspecified | CPT/HCPCS: 80053; 84439; 84443; 84550; 85025 ==

== ENCOUNTER → 2022-12-16 13:01 | Outpatient (BNVA) | payer MEDICARE, OTHER, SELFPAY | PROVIDERS: PCP Family Medicine; Visit Provider Physician Assistant | DX: S42.202A Unspecified fracture of upper end of left humerus, initial encounter for closed fracture (principal); X58.XXXA Exposure to other specified factors, initial encounter | CPT/HCPCS: 72170; 73060; 99213 ==

== ENCOUNTER 2022-12-26 06:00 | Outpatient (RCR) | payer MEDICARE, OTHER, SELFPAY | END 2022-12-28 23:59 | disposition home or self-care (01) | LOC: GPT 06:00 | PROVIDERS: Visit Provider Physician Assistant | DX: S42.92XA Fracture of left shoulder girdle, part unspecified, initial encounter for closed fracture (principal); X58.XXXA Exposure to other specified factors, initial encounter | CPT/HCPCS: 97110; 97140; 97161 ==

== ENCOUNTER 2022-12-29 06:00 | Outpatient (RCR) | payer MEDICARE, OTHER, SELFPAY | END 2023-01-28 23:59 | disposition home or self-care (01) | LOC: GPT 06:00 | PROVIDERS: Visit Provider Physician Assistant | DX: M76.821 Posterior tibial tendinitis, right leg (principal) | CPT/HCPCS: 97110; 97112; 97140; 99213 ==

== ENCOUNTER 2022-12-29 14:19 | Outpatient (CLI) | payer MEDICARE, OTHER, SELFPAY | END 2022-12-29 14:20 | disposition home or self-care (01) | LOC: SPT 14:20 | PROVIDERS: Visit Provider Podiatrist Foot & Ankle Surgery | DX: Z46.89 Encounter for fitting and adjustment of other specified devices (principal); M76.821 Posterior tibial tendinitis, right leg | CPT/HCPCS: 97760; L1902 ==

== ENCOUNTER → 2023-01-13 13:53 | Outpatient (BNVA) | payer MEDICARE, OTHER, SELFPAY | PROVIDERS: Visit Provider Physician Assistant | DX: S42.202A Unspecified fracture of upper end of left humerus, initial encounter for closed fracture (principal); X58.XXXA Exposure to other specified factors, initial encounter | CPT/HCPCS: 73030; 99213 ==

== ENCOUNTER → 2023-01-21 15:06 | Outpatient (BNVA) | payer MEDICARE, OTHER, SELFPAY | PROVIDERS: Visit Provider Internal Medicine | DX: I48.91 Unspecified atrial fibrillation (principal); I82.441 Acute embolism and thrombosis of right tibial vein; I50.32 Chronic diastolic (congestive) heart failure; E03.9 Hypothyroidism, unspecified; Z79.01 Long term (current) use of anticoagulants | CPT/HCPCS: 99214 ==

== ENCOUNTER → 2023-01-23 14:01 | Outpatient (BNVA) | payer MEDICARE, OTHER, SELFPAY | PROVIDERS: Visit Provider Internal Medicine | DX: I50.9 Heart failure, unspecified (principal) | CPT/HCPCS: 80048; 83880 ==

== ENCOUNTER 2023-01-29 06:00 | Outpatient (RCR) | payer MEDICARE, OTHER, SELFPAY | END 2023-02-27 23:59 | disposition home or self-care (01) | LOC: GPT 06:00 | PROVIDERS: Visit Provider Physician Assistant | DX: M76.821 Posterior tibial tendinitis, right leg (principal) | CPT/HCPCS: 97110; 97140; 97164 ==

== ENCOUNTER 2023-02-10 06:00 | Outpatient (RCR) | payer MEDICARE, OTHER, SELFPAY | END 2023-02-27 23:59 | disposition home or self-care (01) | LOC: GPT 06:00 | PROVIDERS: Visit Provider Podiatrist Foot & Ankle Surgery | DX: M25.571 Pain in right ankle and joints of right foot (principal) | CPT/HCPCS: 97110; 97112; 97140; 97161 ==

== ENCOUNTER → 2023-02-24 08:59 | Outpatient (BNVA) | payer MEDICARE, OTHER, SELFPAY | PROVIDERS: Visit Provider Physician Assistant | DX: S42.202D Unspecified fracture of upper end of left humerus, subsequent encounter for fracture with routine healing (principal); X58.XXXD Exposure to other specified factors, subsequent encounter | CPT/HCPCS: 73030; 99213 ==

== ENCOUNTER 2023-02-28 06:00 | Outpatient (RCR) | payer MEDICARE, OTHER, SELFPAY | END 2023-03-30 23:59 | disposition home or self-care (01) | LOC: GPT 06:00 | PROVIDERS: Visit Provider Podiatrist Foot & Ankle Surgery | DX: M25.571 Pain in right ankle and joints of right foot (principal) | CPT/HCPCS: 97110; 97112; 97140; 97164; 97530 ==

== ENCOUNTER 2023-03-31 06:00 | Outpatient (RCR) | payer MEDICARE, OTHER, SELFPAY | END 2023-04-30 23:59 | disposition home or self-care (01) | LOC: GPT 06:00 | PROVIDERS: Visit Provider Podiatrist Foot & Ankle Surgery | DX: M25.571 Pain in right ankle and joints of right foot (principal) | CPT/HCPCS: 97110; 97140; 97530; 97535 ==

== ENCOUNTER → 2023-04-27 08:59 | Outpatient (BNVA) | payer MEDICARE, OTHER, SELFPAY | PROVIDERS: Visit Provider Podiatrist Foot & Ankle Surgery | DX: M76.821 Posterior tibial tendinitis, right leg (principal) | CPT/HCPCS: 99213 ==

== ENCOUNTER 2023-06-03 13:46 | Outpatient (CLI) | payer MEDICARE, OTHER, SELFPAY ==
--- NOTE | 2023-06-03 06:27 | MM_ITS ---
WS: [id number] BILATERAL 3D TOMOSYNTHESIS DIGITAL SCREENING MAMMOGRAPHY WITH CAD CLINICAL INFORMATION: SCREENING HISTORY: Screening mammogram. No current complaints. COMPARISON: 2020 TECHNIQUE: Bilateral CC and MLO views. FINDINGS: Scattered fibroglandular densities bilaterally. No suspicious focal mass, asymmetry, calcifications, or architectural distortion. No evidence of malignancy. Incidental punctate calcifications. IMPRESSION: MM/[place] [id number] BI-RADS: 2-Benign FOLLOW UP: 1 Year Follow-up Recommend return to annual screening mammography.
== END 2023-06-03 13:47 | disposition home or self-care (01) ==
LOC: MOBLMAM 13:49
PROVIDERS: Visit Provider Nurse Practitioner
DX: Z12.31 Encounter for screening mammogram for malignant neoplasm of breast (principal)
CPT/HCPCS: 77063; 77067

== ENCOUNTER → 2023-07-28 07:15 | Outpatient (BNVA) | payer MEDICARE, OTHER, SELFPAY | PROVIDERS: Visit Provider Podiatrist Foot & Ankle Surgery | DX: M76.821 Posterior tibial tendinitis, right leg | CPT/HCPCS: 99213 ==

== ENCOUNTER → 2023-07-31 10:32 | Outpatient (BNVA) | payer MEDICARE, OTHER, SELFPAY | PROVIDERS: Visit Provider Nurse Practitioner Family | DX: I50.32 Chronic diastolic (congestive) heart failure (principal) | CPT/HCPCS: 99213 ==

== ENCOUNTER → 2023-11-24 08:01 | Outpatient (BNVA) | payer MEDICARE, OTHER, SELFPAY | PROVIDERS: PCP Nurse Practitioner; Referring Provider Nurse Practitioner; Visit Provider Student in an Organized Health Care Education/Training Program | DX: M75.41 Impingement syndrome of right shoulder | CPT/HCPCS: 20610; 73030; 99214; J3301 ==

== ENCOUNTER → 2024-01-19 13:49 | Outpatient (BNVA) | payer MEDICARE, OTHER, SELFPAY | PROVIDERS: PCP Nurse Practitioner; Visit Provider Internal Medicine | DX: I48.91 Unspecified atrial fibrillation (principal); I82.441 Acute embolism and thrombosis of right tibial vein; I50.32 Chronic diastolic (congestive) heart failure; E03.9 Hypothyroidism, unspecified; Z79.01 Long term (current) use of anticoagulants | CPT/HCPCS: 99213; 99214 ==

== ENCOUNTER → 2024-03-21 08:23 | Outpatient (BNVA) | payer MEDICARE, OTHER, SELFPAY | PROVIDERS: PCP Nurse Practitioner; Visit Provider Podiatrist Foot & Ankle Surgery | DX: M76.821 Posterior tibial tendinitis, right leg | CPT/HCPCS: 99213 ==

== ENCOUNTER 2024-11-15 09:05 | Outpatient (CLI) | payer MEDICARE, OTHER, SELFPAY ==
--- NOTE | 2024-11-15 09:20 | MM_ITS ---
WS: [id number] BILATERAL 3D TOMOSYNTHESIS DIGITAL SCREENING MAMMOGRAPHY WITH CAD CLINICAL INFORMATION: SCREENING HISTORY: Screening mammogram. No current complaints. COMPARISON: 2022 TECHNIQUE: Bilateral CC and MLO views. FINDINGS: Scattered fibroglandular densities bilaterally. No suspicious focal mass, asymmetry, calcifications, or architectural distortion. No evidence of malignancy. Incidental punctate and skin calcifications MM/MM scr tomosynthesis [id number] IMPRESSION: DENSITY: There are scattered areas of fibroglandular density. BI-RADS: 2 - Benign. FOLLOW UP: 1 Year Follow-up Recommend return to annual screening mammography.
== END 2024-11-15 09:06 | disposition home or self-care (01) ==
LOC: MOBLMAM 09:09
PROVIDERS: PCP Nurse Practitioner; Visit Provider Nurse Practitioner
DX: Z12.31 Encounter for screening mammogram for malignant neoplasm of breast (principal); R92.323 Mammographic fibroglandular density, bilateral breasts; R92.1 Mammographic calcification found on diagnostic imaging of breast
CPT/HCPCS: 77063; 77067

== ENCOUNTER → 2024-12-19 07:39 | Outpatient (BNVA) | payer MEDICARE, OTHER, SELFPAY | PROVIDERS: PCP Nurse Practitioner; Visit Provider Podiatrist Foot & Ankle Surgery | DX: M19.171 Post-traumatic osteoarthritis, right ankle and foot (principal); M25.571 Pain in right ankle and joints of right foot; G89.29 Other chronic pain; M76.821 Posterior tibial tendinitis, right leg; M76.71 Peroneal tendinitis, right leg | CPT/HCPCS: 20600; 20605; 99213; J1100; J3301; J3490 ==

== ENCOUNTER → 2025-01-17 12:52 | Outpatient (BNVA) | payer MEDICARE, OTHER, SELFPAY | PROVIDERS: PCP Nurse Practitioner; Visit Provider Internal Medicine | DX: I50.32 Chronic diastolic (congestive) heart failure (principal); I48.91 Unspecified atrial fibrillation; I82.441 Acute embolism and thrombosis of right tibial vein; Z79.01 Long term (current) use of anticoagulants; E03.9 Hypothyroidism, unspecified | CPT/HCPCS: 99213 ==

== ENCOUNTER → 2025-04-19 13:42 | Outpatient (BNVA) | payer MEDICARE, OTHER, SELFPAY | PROVIDERS: PCP Nurse Practitioner; Visit Provider Physician Assistant | DX: M75.41 Impingement syndrome of right shoulder (principal); M25.511 Pain in right shoulder | CPT/HCPCS: 20610; 99213 ==

== ENCOUNTER 2025-06-21 06:25 | Inpatient (IN) | payer MEDICARE, OTHER, SELFPAY ==
[2025-06-21] VITALS (71 sets, daily range): BP systolic 92–148; BP diastolic 41–86; PULSE 73–134; RESP 10–30; TEMP 36.6–37.8; O2SAT 93–100; BMI 37.8; BMI 40.1
--- OUTSIDE RECORDS SUMMARY | 2025-06-21 06:30 | XMS_ITS | Encounter Summary ---
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 (CMS/HCC) Social History Tobacco Use Types Packs/Day Years Used Date Smoking Tobacco: Never Assessed Comments Unknown Sex and Gender Information Value Date Recorded Sex Assigned at Not on file 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 Gender Identity Not on file Sexual Orientation Not on file documented as of this encounter Plan of Treatment Not on file documented as of this encounter Results * US ARTERIAL W SEG PRES LOWER EXERCISE (05/31/2009 1:30 PM CDT) Anatomical Region Laterality Modality Lower Extremity Ultrasound Narrative 05/31/2009 6:36 PM CDT BILATERAL LOWER EXTREMITY SEGMENTAL DOPPLER EXAM WITH EXERCISE DATE OF EXAM: 05/31/2009 Segmental Limb Pressures Right Left Brachial 124 115 High Thigh 200 174 Low Thigh 194 159 Calf 152 149 Ankle (PT) 145 147 Ankle (DP) 143 144 Digit 106 85 Tech: Raymundo Azevedo, SAÚLT Indication for exam: leg pain Doppler waveforms obtained from the common femoral, popliteal, posterior tibial and dorsalis pedis arteries in both lower extremities demonstrate normal flow. Pulse volume recording from the high thigh, below the knee and at the ankle show reflected waveforms. Digital PPG tracings and pressure is present and appear normal on all the toes of both feet. Bilateral segmental pressures are measured and recorded above. The patient under went treadmill exercise for 5 minutes at 1.8 mile per hour and 10% incline. Post exercise there was no significant drop in pressure on either side. Impression: Arterial segmental Doppler study demonstrating no evidence of significant occlusive disease. Procedure Note Enoch Daniels MD - 06/20/2009 BILATERAL LOWER EXTREMITY SEGMENTAL DOPPLER EXAM WITH EXERCISE DATE OF EXAM: 05/31/2009 Segmental Limb Pressures Right Left Brachial 124 115 High Thigh 200 174 Low Thigh 194 159 Calf 152 149 Ankle (PT) 145 147 Ankle (DP) 143 144 Digit 106 85 Tech: Raymundo Azevedo, [facility] Indication for exam: leg pain Doppler waveforms obtained from the common femoral, popliteal, posteriortibial and dorsalis pedis arteries in both lower extremities demonstratenormal flow. Pulse volume recording from the high thigh, below the knee and at theankle show reflected waveforms. Digital PPG tracings and pressure is present and appear normal on all thetoes of both feet. Bilateral segmental pressures are measured and recorded above. The patient under went treadmill exercise for 5 minutes at 1.8 mile perhour and 10% incline. Post exercise there was no significant drop inpressure on either side. Impression: Arterial segmental Doppler study demonstrating no evidence ofsignificant occlusive disease. 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
--- OUTSIDE RECORDS SUMMARY | 2025-06-21 06:30 | XMS_ITS | Clinical Summary ---
Author Organization 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 Active Vit C-Vit R-Mqvlsl-OgUu-L utein (PRESERVISION) 226-200-5-0.8 an-tgom-eo-mg Capsule Take 1 Capsule by mouth 2 times daily. Active levothyroxine 137 mcg tablet Take 137 mcg by mouth daily handle bar assembler. Active omega-3 fatty acids (FISH OIL ORAL) Take 1 Capsule by mouth daily. Active L.acid/L.casei/ B.bif/B.mahamed/FOS (PROBIOTIC BLEND ORAL) Take 1 Tablet by mouth 2 times daily. Active cyanocobalamin, vitamin B-12, (VITAMIN B-12 ORAL) Take 1 Tablet by mouth daily. Active aspirin (ECOTRIN EC) 81 mg Tablet, Delayed Release (E.C.) Take 81 mg by mouth daily. Active HYDROcodone-andre taminophen (NORCO) 7.5-325 mg Tablet Take 1 Tablet by mouth every 4 hours as needed for Pain. Max Daily Amount: 6 Tablets 10 Tablet 07/01/2018 Active furosemide (LASIX) 20 mg tablet Take 20 mg by mouth daily. Active bisoprolol (ZEBETA) 5 mg tablet Take 1 Tablet by mouth daily. 10/12/2019 Active allopurinoL (ZYLOPRIM) 100 mg tablet Take 1 Tablet by mouth daily. 06/14/2020 Active flecainide (TAMBOCOR) 50 mg Tablet Take 1 Tablet by mouth 2 times daily. 07/19/2020 Active apixaban (Eliquis) 2.5 mg tablet Take 1 Tablet by mouth 2 times daily. 07/23/2020 Active Active Problems Problem Noted Date Diagnosed Date Acute deep vein thrombosis ( DVT) of tibial vein of right lower extremity 08/29/2020 Bilateral carpal tunnel syndrome 05/29/2017 Iliotibial band syndrome of left side 06/12/2016 Left TKA- Perry 09/24/2015 09/20/2015 History of DVT of lower extremity 09/17/2015 Overview (09/17/2015): RLE after stillbirth Leukocytopenia 09/14/2015 Primary osteoarthritis of left knee 09/14/2015 Hyperkalemia 09/14/2015 History of irregular heartbeat 09/14/2015 Right TKA- Perry 08/16/2014 08/15/2014 Obesity (BMI 30.0-34.9) 08/07/2014 Preoperative general physical examination 2013 Unspecified venous (peripheral) insufficiency Varicose veins of lower extr emities with other complications 10/02/2009 Hypothyroidism GERD (gastroesophageal reflux disease) Leukopenia Resolved Problems Problem Noted Date Diagnosed Date Resolved Date Osteoarthritis of right knee 06/29/2014 09/14/2015 Right knee pain 06/29/2014 09/14/2015 Family History Medical History Relation Name Comments Other Brother 1 Ludwinald high PSA Healthy Brother 2 Usama Cancer Father Stanton prostate Arthritis-rheumatoid Mother Diann Hypertension Son 1 Harshal Healthy Son 2 Arline Relation Name Status Comments Brother 1 Darald Alive Brother 2 Usama Alive Father Stanton (Age 93) Mother Diann (Age 80) Son 1 Harshal Alive Son 2 Arline Alive Social History Tobacco Use Types Packs/Day Years Used Date Smoking Tobacco: Never Smokeless Tobacco: Never Alcohol Use Standard Drinks/Week Comments Yes 0 (1 standard drink = 0.6 oz pure alcohol) 1 glass wine three times yearly Comments No Sex and Gender Information Value Date Recorded Sex Assigned at Not on file Legal Sex 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 Gender Identity Not on file Sexual Orientation Not on file Occupation Industry Job Start Date Job End Date Not on file Not on file Not on file Not on file Last Filed Vital Signs Vital Sign Reading Time Taken Comments Blood Pressure 108/64 08/29/2020 1:10 PM NEWS CLIPPING CUTTER Pulse 72 08/29/2020 1:10 PM NEWS CLIPPING CUTTER Temperature 35.5 C (95.9 F) 07/01/2018 9:45 AM CDT Respiratory Rate 20 08/29/2020 1:10 PM NEWS CLIPPING CUTTER Oxygen Saturation 95% 08/29/2020 1:10 PM NEWS CLIPPING CUTTER Inhaled Oxygen Concentration - - Weight 103.4 kg (228 lb) 08/29/2020 1:10 PM NEWS CLIPPING CUTTER Height 167.6 cm (5' 6 ) 07/01/2018 7:16 AM CDT Body Mass Index 36.8 07/01/2018 7:16 AM CDT Plan of Treatment Health Maintenance Due Date Last Done Comments DTAP/TDAP/TD VACCINES (1 - Tdap) 1964 PNEUMOCOCCAL VACCINE 50+ YEARS (1 of 1 - PCV) 03/24/19 94 ZOSTER VACCINE (1 of 2) 1994 OSTEOPOROSIS SCREENING 2009 RSV VACCINE (60+ or ) (1 - 1-dose 75+ series) 2019 INFLUENZA VACCINE (#1) 2025 Medical Devices Implanted Type Area Podiatric Medicine Doctor Device Identifier Shelf Expiration Date Model / Serial / Lot Simplex Hi Viscosity 6194-1-010 - [id number] Implanted:Qty: 2 on 08/16/2014 at [facility] Cement Right: Knee [employer] 01/29/2015 6194-1-010 / / [id number] Cement Simplex Hvisc 6194-1-001 - [id number] Implanted:Qty: 2 on 09/24/2015 by Jean-Paul Adan MD at [facility] Cement Left: Knee [employer] 03/30/2017 6194-1-001 / / [id number] Comp Fem Trthln Ps Sz4 5515-F-402 - [id number] Implanted:Qty: 1 on 08/16/2014 at [facility] Knee Right: Knee [employer] 02/28/2019 5515-F-402 / / [id number] Comp Tib Trthln Unvrsl #4 5521-B-400 - [id number] Implanted:Qty: 1 on 08/16/2014 at [facility] Knee Right: Knee [employer] 07/31/2019 5521-B-400 / / [id number] Patella Trthln Asym Poly 5551-L-350 - [id number] Implanted:Qty: 1 on 08/16/2014 at [facility] Knee Right: Knee [employer] 05/31/2019 5551-L-350 / / [id number] Tib Trthln X3 Ps 5532-G-413 - [id number] Implanted:Qty: 1 on 08/16/2014 at [facility] Knee Right: Knee [employer] 07/01/2019 5532-G-413 / / [id number] Comp Fem Trthln Cr Sz4 Lt 5510-F-401 - [id number] Implanted:Qty: 1 on 09/24/2015 by Jean-Paul Adan MD at [facility] Knee Left: Knee [employer] 07/16/2020 5510-F-401 / / [id number] Patella Trthln Asym Poly 5551-L-320 - [id number] Implanted:Qty: 1 on 09/24/2015 by Jean-Paul Adan MD at [facility] Knee Left: Knee [employer] 08/11/2020 5551-L-320 / / [id number] Insert Tib Trthln X3 Cs 5531-G-413 - [id number] Implanted:Qty: 1 on 09/24/2015 by Jean-Paul Adan MD at [facility] Knee Left: Knee [employer] 05/30/2017 5531-G-413 / / [id number] Comp Tib Triathlon Cmnt 5520-B-400 - [id number] Implanted:Qty: 1 on 09/24/2015 by Jean-Paul Adan MD at [facility] Knee Left: Knee [employer] 02/28/2020 5520-B-400 / / [id number] Insurance MEDICARE PART A AND B FOR LIFE Advance Directives For more information, please contact: [phone] Documents on File Type Date Recorded Patient State Pilot Expl anation Advance Directive POA 08/03/2014 10:09 AM Advance Directive POA Advance Directive Living Will 08/03/2014 10:09 AM Advance Directive Living Will * Full Code (Latest Code Status on File) Date Activated Date Inactivated Comments 06/30/2017 7:14 AM 06/30/2017 3:24 PM * Full Code Date Activated Date Inactivated Comments 09/24/2015 9:58 AM 09/26/2015 6:13 PM * Full Code Date Activated Date Inactivated Comments 09/24/2015 7:12 AM 09/24/2015 9:58 AM * Full Code Date Activated Date Inactivated Comments 09/24/2015 5:46 AM 09/24/2015 7:12 AM * Full Code Date Activated Date Inactivated Comments 08/16/2014 4:08 PM 08/18/2014 7:32 PM Care Teams Payroll Professional Relationship Specialty Start Date End Date Non-Staff, Physician NO ADDRESS ON FILE PCP - General 07/01/18
--- OUTSIDE RECORDS SUMMARY | 2025-06-21 06:30 | XMS_ITS | Encounter Summary ---
Author Organization [facility] Address [address] [place] [address] Care Team Providers Care Marine Cargo Surveyor Name Role Phone Non-Staff, Physician Primary Care Provider Unava ilable Encounter Details Date Type Department Care Team (Latest Contact Info) Description 07/04/2009 Ancillary Orders [facility] Cardiac Thoracic Vascular Surg Estefani [address] [place] [address] Laura Mejia CNS NO ADDRESS ON FILE Unspecified Venous (Peripheral) Insufficiency; Varicose Veins of Lower Extremities with Other Complications Social History Tobacco Use Types Packs/Day Years Used Date Smoking Tobacco: Never Assessed Comments No Sex and Gender Information Value Date Recorded Sex Assigned at Not on file Legal Sex 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 No significant reflux in the deep system upon being upright or supine. No DVT. Tech: Marie Greenfield RVT Narrative 07/04/2009 8:43 AM WINDOW AND DOOR INSTALLER Date of Service 07-04-09 LEFT LOWER EXTREMITY VENOUS MAPPING INDICATION: Varicose veins. FINDINGS: The common femoral, greater saphenous, saphenofemoral, popliteal, posterior tibial, and lesser saphenous have no reflux. The lesser saphenous diameter is 1.7, depth of 8.6. The greater saphenous 1 cm below origin is 8.6 mm, at the level of the knee is 3.7 mm. The greater saphenous depth is graded 10 mm, the greatest saphenous at thigh is straight, and in the calf is straight. The patient has no reflux in the deep system or superficial upright or supine. Reflux though is seen in the anterior tributary which runs toward the ankle and is very tortuous. Also Cockett s #1 has some reflux and ties into the greater saphenous toward ankle. Procedure Note Ata Molina MD - 07/06/2009 Date of Service 07-04-09 LEFT LOWER EXTREMITY VENOUS MAPPING INDICATION: Varicose veins. FINDINGS: The common femoral, greater saphenous, saphenofemoral,popliteal, posterior tibial, and lesser saphenous have no reflux. Thelesser saphenous diameter is 1.7, depth of 8.6. The greater saphenous 1cm below origin is 8.6 mm, at the level of the knee is 3.7 mm. Thegreater saphenous depth is graded 10 mm, the greatest saphenous at thighis straight, and in the calf is straight. The patient has no reflux inthe deep system or superficial upright or supine. Reflux though is seenin the anterior tributary which runs toward the ankle and is verytortuous. Also Cockett s #1 has some reflux and ties into the greatersaphenous toward ankle. IMPRESSION: Reflux in an anterior tibial branch and Cockett s #1perforator. No significant reflux in the deep system upon being uprightor supine. No DVT. Tech: Marie Greenfield RVT Laurasa Lisbeth Mejia [facility] ORDERABLES Final Result documented in this encounter Visit Diagnoses Diagnosis Unspecified venous (peripheral) insufficiency Varicose veins of lower extremities with other complications documented in this encounter Care Teams Marine Cargo Surveyor Relationship Specialty Start Date End Date Non-Staff, Physician NO ADDRESS ON FILE PCP - General 07/01/18 documented as of this encounter
--- OUTSIDE RECORDS SUMMARY | 2025-06-21 06:30 | XMS_ITS | Patient Health Record ---
Author Organization [facility] Address [address] [place] [address] Support Name Relationship Address Phone Georgina York Guarantor Unknown [phone] Allergies Allergen (clinical drug ingredient) Drug/Non Drug Allergy documented on EMR Reaction Allergy Type Onset Date Status Prednisone , Drug Allergy Active hydrocortisone Cortizone-10 Unknown Drug Allergy Active atorvastatin atorvastatin , Drug Allergy A ctive Reason For Referral No Information Medications Medication SIG (Take, Route, Frequency, Duration) Notes Start Date End Date Status Lasix 20 MG Tablet 1 tablet Orally Once a day; Duration: 90 day(s) 01/19/2020 Active Omeprazole 20 MG Capsule Delayed Release 1 capsule 30 minutes before morning meal Orally Once a day; Duration: 30 day(s) Active Potassium Chloride ER 10 MEQ Tablet Extended Release 1 tablet with food Orally Once a day; Duration: 90 Active Senath 3 1200 MG Capsule 1 capsule Orally Once a day; Duration: 30 day(s) Active Flecainide Acetate 50 MG Tablet 1 TABLET Orally TWICE DAILY; Duration: 90 days 06/08/2020 Active Levothyroxine Sodium 137 MCG Tablet 1 tablet in the morning on an empty stomach Orally Once a day; Duration: 30 day(s) Active PreserVision AREDS 2 - Capsule as directed Orally Active Vitamin B 12 500 MCG Tablet 1 tablet Ora lly Once a day; Duration: 30 day(s) Active Aspirin 81 81 MG Tablet Chewable as directed Orally Active Bisoprolol Fumarate 5 MG Tablet 1 tablet Oral Once a day; Duration: 30 day(s) 10/12/2019 Active Immunizations Vaccine Route Administration Date Status Comme nts Influenza (whole), CPT 71119 Inactive Unknown 06/01/2017 Administered Social History Social History Additional Details Category Social Info Options Details zzMigrated Social History Drugs/Alcohol: (Caffeine):Intake: 1-2 cups per day . ;(Do you drink alcohol?):No ; Tobacco Use: (Tobacco Use/Smoking):Are you a:: never smoker ; Problems Problem Type SNOMED Code ICD Code Onset Dates Problem Status W/U Status Risk Notes Problem Chronic diastolic heart failure (942454305) Chronic diastolic (congestive) heart failure (I50.32) Active confirmed Problem Essential hypertension (96541441) Essential hypertension (I10) Active confirmed Problem Gastroesophageal reflux disease without esophagitis (161386282) Gastroesophageal reflux disease without esophagitis (K21.9) Active confirmed Problem Dyspnea on exertion (17656006) KAUFMAN (dyspnea on exertion) (R06.09) Active confirmed Problem Hypothyroidism (35640260) Hypothyroidism, unspecified type (E03.9) Active confirmed Problem Pulmonary hypertension (80077904) Pulmonary hypertension (I27.20) Active confirmed Problem Tricuspid incompetence, non-rheumatic (188975866) Nonrheumatic tricuspid valve regurgitation (I36.1) Active confirmed Plan Of Treatment No Information Medical (General) History Surgical History Surgery Date(Month/Year) right knee replacement left knee replacement hysterectomy tonsillectomy
--- OUTSIDE RECORDS SUMMARY | 2025-06-21 06:30 | XMS_ITS | Patient Health Record ---
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 ok for joint inj Drug Allergy Active Results Component Value Reference Range Notes COMPREHENSIVE METABOLIC PANE L ([id number]) Reviewed date:05/23/2025 07:28:38 PM Interpretation: Performing Lab:[place], [facility]-[id number] Patrizia MartinezaKS[address] Gary Pierre MD Notes/Report: 0 GLUCOSE 88 65-99 mg/dL Fasting reference interval UREA NITROGEN (BUN) 19 7-25 mg/dL CREATININE 0.92 0.60-0.95 mg/dL EGFR 63 > OR = 60 mL/min/1.73m2 BUN/CREATININE RATIO SEE NOTE: 02-19 (calc) Not Reported: BUN and Creatinine are within reference range. SODIUM 141 135-146 mmol/L POTASSIUM 4.0 3.5-5.3 mmol/L CHLORIDE 106 98-110 mmol/L CARBON DIOXIDE 26 20-32 mmol/L CALCIUM 10.0 8.6-10.4 mg/dL PROTEIN, TOTAL 6.0 6.1-8.1 g/dL ALBUMIN 3.9 3.6-5.1 g/dL GLOBULIN 2.1 1.9-3.7 g/dL (calc) ALBUMIN/GLOBULIN RATIO 1.9 1.0-2.5 (calc) BILIRUBIN, TOTAL 0.7 0.2-1.2 mg/dL ALKALINE PHOSPHATASE 51 37-153 U/L AST 16 10-35 U/L ALT 17 6-29 U/L TSH W/REFLEX TO FT4 ([id number]) Reviewed date:05/07/2025 09:11:22 PM Interpretation: Performing Lab:Andre HOGANexa10101 Sarah Martinez[address] Gary Pierre MD Notes/Report: 0 0 0 0 TSH W/REFLEX TO FT4 8.37 0.40-4.50 mIU/L T4, FREE 1.6 0.8-1.8 ng/dL COMPREHENSIVE METABOLIC PANE L ([id number]) Reviewed date:05/07/2025 09:11:21 PM Interpretation: Performing Lab:Andre HOGAN LenexaKS[address] Gary Pierre MD Notes/Report: 0 0 GLUCOSE 93 65-99 mg/dL Fasting reference interval UREA NITROGEN (BUN) 26 7-25 mg/dL CREATININE 1.12 0.60-0.95 mg/dL EGFR 49 > OR = 60 mL/min/1.73m2 BUN/CREATININE RATIO 23 6-22 (calc) SODIUM 141 135-146 mmol/L POTASSIUM 4.1 3.5-5.3 mmol/L CHLORIDE 106 98-110 mmol/L CARBON DIOXIDE 27 20-32 mmol/L CALCIUM 10.2 8.6-10.4 mg/dL PROTEIN, TOTAL 6.6 6.1-8.1 g/dL ALBUMIN 4.1 3.6-5.1 g/dL GLOBULIN 2.5 1.9-3.7 g/dL (calc) ALBUMIN/GLOBULIN RATIO 1.6 1.0-2.5 (calc) BILIRUBIN, TOTAL 0.8 0.2-1.2 mg/dL ALKALINE PHOSPHATASE 57 37-153 U/L AST 15 10-35 U/L ALT 16 6-29 U/L TSH W/REFLEX TO FT4 ([id number]) Reviewed date:03/27/2025 08:35:45 AM Interpretation: Performing Lab:Andre HOGAN LenexaKS[address] Gary Pierre MD Notes/Report: 0 0 0 0 0 0 0 0 0 0 TSH W/REFLEX TO FT4 8.82 0.40-4.50 mIU/L T4, FREE 1.2 0.8-1.8 ng/dL HEMOGLOBIN A1c (496) Reviewed date:03/28/2025 10:28:52 AM Interpretation: Performing Lab:Andre HOGANexa10101 Patrizia MartinezaKS[address] Gary Pierre MD Notes/Report: 0 0 0 0 0 HEMOGLOBIN A1c 6.0 <5.7 % For someone without known diabetes, a hemoglobin A1c value between 5.7% and 6.4% is consistent with prediabetes and should be confirmed with a follow-up test. For someone with known diabetes, a value <7% indicates that their diabetes is well controlled. A1c targets should be individualized based on duration of diabetes, age, comorbid conditions, and other considerations. This assay result is consistent with an increased risk of diabetes. Currently, no consensus exists regarding use of hemoglobin A1c for diagnosis of diabetes for children. URINALYSIS, COMPLETE W/REFLE X TO CULTURE (3020) Reviewed date:03/27/2025 08:35:45 AM Interpretation: Performing Lab:Andre HOGAN-Sbrvmi11331 Patrizia MartinezaKS[address] Gary Pierre MD Notes/Report: 0 0 0 0 0 0 0 0 0 0 COLOR YELLOW YELLOW APPEARANCE CLEAR CLEAR SPECIFIC GRAVITY 1.018 1.001-1.035 PH 6.5 5.0-8.0 GLUCOSE NEGATIVE NEGATIVE BILIRUBIN NEGATIVE NEGATIVE KETONES NEGATIVE NEGATIVE OCCULT BLOOD NEGATIVE NEGATIVE PROTEIN NEGATIVE NEGATIVE NITRITE NEGATIVE NEGATIVE LEUKOCYTE ESTERASE NEGATIVE NEGATIVE WBC NONE SEEN < OR = 5 /HPF RBC NONE SEEN < OR = 2 /HPF SQUAMOUS EPITHELIAL CELLS 0-5 < OR = 5 /HPF BACTERIA NONE SEEN NONE SEEN /HPF HYALINE CAST NONE SEEN NONE SEEN /LPF NOTE This urine was analyzed for the presence of WBC, RBC, bacteria, casts, and other formed elements. Only those elements seen were reported. REFLEXIVE URINE CULTURE NO C ULTURE INDICATED CBC (INCLUDES DIFF/PLT) ([id number]) Reviewed date:03/27/2025 08:35:45 AM Interpretation: Performing Lab:Andre HOGANexa10101 Patrizia MartinezaKS[address] Gary Pierre MD Notes/Report: 0 0 0 0 0 WHITE BLOOD CELL COUNT 6.1 3.8-10.8 Thousand/ uL RED BLOOD CELL COUNT 4.43 3.80-5.10 Million/uL HEMOGLOBIN 13.0 11.7-15.5 g/dL HEMATOCRIT 42.2 35.0-45.0 % MCV 95.3 80.0-100.0 fL MCH 29.3 27.0-33.0 pg MCHC 30.8 32.0-36.0 g/dL For adults, a slight decrease in the calculated MCHC value (in the range of 30 to 32 g/dL) is most likely not clinically significant; however, it should be interpreted with caution in correlation with other red cell parameters and the patient's clinical condition. RDW 13.0 11.0-15.0 % PLATELET COUNT 267 140-400 Thousand/uL MPV 11.0 7.5-12.5 fL ABSOLUTE NEUTROPHILS 2769 1026-3983 cells/uL ABSOLUTE LYMPHOCYTES 2373 850-3900 cells/uL ABSOLUTE MONOCYTES 744 200-950 cells/uL ABSOLUTE EOSINOPHILS 171 15-500 cells/uL ABSOLUTE BASOPHILS 43 0-200 cells/uL NEUTROPHILS 45.4 LYMPHOCYTES 38.9 MONOCYTES 12.2 EOSINOPHILS 2.8 BASOPHILS 0.7 COMPREHENSIVE METABOLIC PANE ([id number]) Reviewed date:03/27/2025 08:35:45 AM Interpretation: Performing Lab:[place], [employer] [facility]-[id number] [place], WpqbjuPN[address] Gary Pierre MD Notes/Report: 0 0 0 0 0 GLUCOSE 84 65-99 mg/dL Fasting reference interval UREA NITROGEN (BUN) 19 7-25 mg/dL CREATININE 1.00 0.60-0.95 mg/dL EGFR 57 > OR = 60 mL/min/1.73m2 BUN/CREATININE RATIO 19 6-22 (calc) SODIUM 140 135-146 mmol/L POTASSIUM 4.5 3.5-5.3 mmol/L CHLORIDE 105 98-110 mmol/L CARBON DIOXIDE 24 20-32 mmol/L CALCIUM 10.2 8.6-10.4 mg/dL PROTEIN, TOTAL 6.7 6.1-8.1 g/dL ALBUMIN 4.3 3.6-5.1 g/dL GLOBULIN 2.4 1.9-3.7 g/dL (calc) ALBUMIN/GLOBULIN RATIO 1.8 1.0-2.5 (calc) BILIRUBIN, TOTAL 0.5 0.2-1.2 mg/dL ALKALINE PHOSPHATASE 57 37-153 U/L AST 16 10-35 U/L ALT 12 6-29 U/L LIPID PANEL, STANDARD (7600) Reviewed date:03/27/2025 08:35:45 AM Interpretation: Performing Lab:[facility] [employer] N[facility]reen-Pliwjw605[address] [place], TbvgvfSA[address] Gary Pierre MD Notes/Report: 0 0 0 0 0 CHOLESTEROL, TOTAL 200 <200 mg/dL HDL CHOLESTEROL 48 > OR = 50 mg/dL TRIGLYCERIDES 443 <150 mg/dL If a non-fasting specimen was collected, consider repeat triglyceride testing on a fasting specimen if clinically indicated. Mercedez et al. J. of Clin. Lipidol. 2015;9:129-169. LDL-CHOLESTEROL LDL cholesterol not calculated. Triglyceride levels greater than 400 mg/dL invalidate calculated LDL results. Reference range: <100 Desirable range <100 mg/dL for primary prevention; <70 mg/dL for patients with CHD or diabetic patients with > or = 2 CHD risk factors. LDL-C is now calculated using the Jhonny-Rubi calculation, which is a validated novel method providing better accuracy than the Friedewald equation in the estimation of LDL-C. Jhonny SS et al. TORSTEN. 2013;310(19): 3962-2180 (http://education.[employer].com/faq/JWW807) CHOL/HDLC RATIO 4.2 <5.0 (calc) NON HDL CHOLESTEROL 152 <130 mg/dL (calc) For patients with diabetes plus 1 major ASCVD risk factor, treating to a non-HDL-C goal of <100 mg/dL (LDL-C of <70 mg/dL) is considered a therapeutic option. TSH W/REFLEX TO FT4 (87175) Reviewed date:07/22/2024 02:01:04 PM Interpretation: Performing Lab:[facility] [employer] Nisreen-Basqpp48262 [place], NtfiwgVN[address] Gary Pierre MD Notes/Report: 0 0 0 0 TSH W/REFLEX TO FT4 0.92 0.40-4.50 mIU/L CBC (INCLUDES DIFF/PLT) (639 9) Reviewed date:07/22/2024 02:01:04 PM Interpretation: Performing Lab:Andre HOGAN-Tmxmvt53272 [place], DnqqtoSI[address] Gary Pierre MD Notes/Report: 0 0 0 0 WHITE BLOOD CELL COUNT 5.0 3.8-10.8 Thousand/ uL RED BLOOD CELL COUNT 4.32 3.80-5.10 Million/uL HEMOGLOBIN 12.7 11.7-15.5 g/dL HEMATOCRIT 38.7 35.0-45.0 % MCV 89.6 80.0-100.0 fL MCH 29.4 27.0-33.0 pg MCHC 32.8 32.0-36.0 g/dL For adults, a slight decrease in the calculated MCHC value (in the range of 30 to 32 g/dL) is most likely not clinically significant; however, it should be interpreted with caution in correlation with other red cell parameters and the patient's clinical condition. RDW 13.6 11.0-15.0 % PLATELET COUNT 250 140-400 Thousand/uL MPV 10.9 7.5-12.5 fL ABSOLUTE NEUTROPHILS 2225 9853-1595 cells/uL ABSOLUTE LYMPHOCYTES 6477 413-0701 cells/uL ABSOLUTE MONOCYTES 630 200-950 cells/uL ABSOLUTE EOSINOPHILS 120 15-500 cells/uL ABSOLUTE BASOPHILS 50 0-200 cells/uL NEUTROPHILS 44.5 LYMPHOCYTES 39.5 MONOCYTES 12.6 EOSINOPHILS 2.4 BASOPHILS 1.0 COMPREHENSIVE METABOLIC PANE L ([id number]) Reviewed date:07/22/2024 02:01:04 PM Interpretation: Performing Lab:Andre HOGNA-Qkfdyf21010 [place], PecfgcDS[address] Gary Pierre MD Notes/Report: 0 0 0 0 GLUCOSE 97 65-99 mg/dL Fasting reference interval UREA NITROGEN (BUN) 17 7-25 mg/dL CREATININE 0.88 0.60-0.95 mg/dL EGFR 66 > OR = 60 mL/min/1.73m2 BUN/CREATININE RATIO SEE NOTE: 6-22 (calc) Not Reported: BUN and Creatinine are within reference range. SODIUM 140 135-146 mmol/L POTASSIUM 4.0 3.5-5.3 mmol/L CHLORIDE 108 98-110 mmol/L CARBON DIOXIDE 23 20-32 mmol/L CALCIUM 9.8 8.6-10.4 mg/dL PROTEIN, TOTAL 6.2 6.1-8.1 g/dL ALBUMIN 3.9 3.6-5.1 g/dL GLOBULIN 2.3 1.9-3.7 g/dL (calc) ALBUMIN/GLOBULIN RATIO 1.7 1.0-2.5 (calc) BILIRUBIN, TOTAL 0.8 0.2-1.2 mg/dL ALKALINE PHOSPHATASE 60 37-153 U/L AST 17 10-35 U/L ALT 15 6-29 U/L LIPID PANEL, STANDARD (7600) Reviewed date:07/22/2024 02:01:03 PM Interpretation: Performing Lab:SAM[facility] [employer]-Ltryum47295 [place], DkcpyzQK[address] Gary Pierre MD Notes/Report: 0 0 0 0 CHOLESTEROL, TOTAL 174 <200 mg/dL HDL CHOLESTEROL 45 > OR = 50 mg/dL TRIGLYCERIDES 141 <150 mg/dL LDL-CHOLESTEROL 105 Reference range: <100 Desirable range <100 mg/dL for primary prevention; <70 mg/dL for patients with CHD or diabetic patients with > or = 2 CHD risk factors. LDL-C is now calculated using the Jhonny-Rubi calculation, which is a validated novel method providing better accuracy than the Friedewald equation in the estimation of LDL-C. Jhonny DING et al. TORSTEN. 2013;310(19): 5879-8179 (http://education.[employer].com/faq/PNY823) CHOL/HDLC RATIO 3.9 <5.0 (calc) NON HDL CHOLESTEROL 129 <130 mg/dL (calc) For patients with diabetes plus 1 major ASCVD risk factor, treating to a non-HDL-C goal of <100 mg/dL (LDL-C of <70 mg/dL) is considered a therapeutic option. Reason For Referral No Information Medications Medication SIG (Take, Route, Frequency, Duration) Notes Start Date End Date Status Furosemide 20 MG 1 tablet Orally twice daily Active Eliquis 5 MG 1 tablet Orally Twice a day Active Omeprazole 20 MG 1 capsule 30 minutes before morning meal Orally Once a day Active Potassium Chloride ER 10 MEQ 1 tablet with food Orally once daily Active PreserVision AREDS - one cap Orally 2 times a day Active metFORMIN HCl 500 MG 1 tablet with a meal Orally Once a day; Duration: 30 days 04/03/2025 Active Vitamin D 50 MCG (1999 UT) 1 tablet Orally Once a day Active Levothyroxine Sodium 175 MCG 1 tablet in the morning on an empty stomach Orally Once a day; Duration: 90 days dose increase 05/07/2025 Active Bisoprolol Fumarate 5 MG 1 tablet Orally Once a day Unknown Ozempic (0.25 or 0.5 MG/DOSE) 2 MG/3ML 0.5mg Subcutaneous weekly; Duration: 90 days this rx for month 2 and thereafter. disp qs for 90 days. shira, clare 03/28/2025 09/23/2025 Active Ventolin HFA 108 (90 Base) MCG/ACT 2 puff as needed for cough or congestion Inhalation every 4 hrs 08/20/2023 Active Breztri Aerosphere 160-9-4.8 MCG/ACT 2 puffs Inhalation Twice a day 03/02/2024 Unknown Fish Oil 1000 MG 1 capsule Orally Once a day Active Social History Sex Assigned At : Social History Observation Description Sex Assigned At Female Household Question Answer Notes Marital status: Problems Problem Type SNOMED Code ICD Code Onset Dates Problem Status W/U Status Risk Notes Problem Morbid obesity (disorder) (487465963) Morbid (severe) obesity due to excess calories (E66.01) Active confirmed Problem Chronic pain (73217119) Other chronic pain (G89.29) Active confirmed Problem Hypertensive heart failure (87287836) Hypertensive heart disease with heart failure (I11.0) Active confirmed Problem Chronic diastolic heart failure (076770354) Chronic diastolic (congestive) heart failure (I50.32) Active confirmed Problem Deep venous thrombosis of peroneal vein (250173113) Acute embolism and thrombosis of right tibial vein (I82.441) Active confirmed Problem Arthralgia of the ankle and/or foot (216899745) Pain in right ankle and joints of right foot (M25.571) Active confirmed Problem Hyperlipidaemia (89128250) Hyperlipidemia, unspecified hyperlipidemia type (E78.5) Active confirmed Problem Hypothyroidism (14873945) Hypothyroidism, unspecified type (E03.9) Active confirmed Problem Asthma without status asthmaticus (08981040) Reactive airway disease without complication, unspecified asthma severity, unspecified whether persistent (J45.909) Active confirmed Problem Atrial fibrillation with rapid ventricular response (274760977846439) Atrial fibrillation with rapid ventricular response (I48.91) Active confirmed Problem Peripheral circulatory disorder associated with diabetes mellitus (367445794) Type 2 diabetes mellitus with other circulatory complication, without long-term current use of insulin (E11.59) Active confirmed Problem Recurrent deep vein thrombosis (314416063) Recurrent deep vein thrombosis (DVT) of right lower extremity (I82.401) Active confirmed Vital Signs Heart Rate 55 /min 03/22/2025 Temperature 97.1 degrees Fahrenheit 03/22/2025 Blood pressure diastolic 76 mm Hg 03/22/2025 Oximetry 94 % 03/22/2025 Height-cm 166.37 cm 03/22/2025 Weight-kg 106.87 kg 03/22/2025 Height 65.5 in 03/22/2025 Blood pressure systolic 122 mm Hg 03/22/2025 Weight 235.6 lbs 03/22/2025 BMI 38.61 kg/m2 03/22/2025 Encounters Encounter Location Date Provider Diagnosis [facility] [employer] [address] [address] 07/21/2024 Zeny Castillo Hypothyroidism, unspecified type E03.9 ; Hyperlipidemia, unspecified hyperlipidemia type E78.5 and Chronic diastolic (congestive) heart failure I50.32 [facility] [employer] [address] [address] 07/21/2024 Zeny Castillo Irritant contact dermatitis due to cosmetics L24.3 [facility] [employer] [facility] [address] [address] 12/08/2024 Zeny Castillo Pain in right ankle and joints of right foot M25.571 ; Hypertensive heart disease with heart failure I11.0 ; Chronic diastolic (congestive) heart failure I50.32 ; Hypothyroidism, unspecified type E03.9 ; Recurrent deep vein thrombosis (DVT) of right lower extremity I82.401 ; Atrial fibrillation with rapid ventricular response I48.91 ; Hyperlipidemia, unspecified hyperlipidemia type E78.5 ; Morbid (severe) obesity due to excess calories E66.01 ; Other chronic pain G89.29 and Reactive airway disease without complication, unspecified asthma severity, unspecified whether persistent J45.909 [employer] [address] [place] [address] 01/09/2025 Zeny [place] Pain in right ankle and joints of right foot M25.571 [employer] [address] [place] [address] 03/22/2025 Zeny [place] Hypothyroidism, unspecified type E03.9 ; Hypertensive heart disease with heart failure I11.0 ; Chronic diastolic (congestive) heart failure I50.32 ; Recurrent deep vein thrombosis (DVT) of right lower extremity I82.401 ; Atrial fibrillation with rapid ventricular response I48.91 ; Hyperlipidemia, unspecified hyperlipidemia type E78.5 and Morbid (severe) obesity due to excess calories E66.01 [employer] [address] [place] [address] 05/04/2025 Zeny [place] Hypothyroidism, unspecified type E03.9 and Type 2 diabetes mellitus with other circulatory complication, without long-term current use of insulin E11.59 [employer] [address] [place] [address] 05/11/2025 Zeny [place] Type 2 diabetes hilary itus with other circulatory complication, without long-term current use of insulin E11.59 [employer] [address] [place] [address] 06/22/2024 Zeny [place] Pain in right ankle and joints of right foot M25.571 [employer] [facility] [address] [place] [address] 10/26/2024 [facility] [place] [facility] [address] [place] [address] 11/21/2024 Zeny [place] [facility] [facility] [address] [place] [address] 12/31/2024 Zeny [place] Pain in right ankle and joints of right foot M25.571 [employer] [facility] [address] [place] [address] 03/27/2025 Zeny [place] Hypothyroidism, unspecified type E03.9 [facility] [address] [place] [address] 03/28/2025 Zeny Castillo Type 2 diabetes hilary itus with other circulatory complication, without long-term current use of insulin E11.59 ; Hypertensive heart disease with heart failure I11.0 ; Chronic diastolic (congestive) heart failure I50.32 and Hyperlipidemia, unspecified hyperlipidemia type E78.[address] [address] 04/03/2025 Zeny Castillo [address] [address] 05/07/[address] [address] 05/23/2025 Zeny Castillo Assessments Encounter Date Diagnosis (ICD Code) Assessment Notes Treatment Notes Treatment Clinical Notes Section Notes 06/22/2024 Pain in right ankle and joints of right foot (ICD-10 - M25.571) 07/21/2024 Hypothyroidism, unspecified type (ICD-10 - E03.9) 07/21/2024 Irritant contact dermatitis due to cosmetics (ICD-10 - L24.3) -- otc claritin. avoidance. Call or return if worsening or not improving. 12/08/2024 Pain in right ankle and joints of right foot (ICD-10 - M25.571) 12/31/2024 Pain in right ankle and joints of right foot (ICD-10 - M25.571) 01/09/2025 Pain in right ankle and joints of right foot (ICD-10 - M25.571) Follow-up Ortho as needed 03/22/2025 Hypertensive heart disease with heart failure (ICD-10 - I11.0) 03/22/2025 Hypothyroidism, unspecified type (ICD-10 - E03.9) 03/27/2025 Hypothyroidism, unspecified type (ICD-10 - E03.9) 03/28/2025 Hypertensive heart disease with heart failure (ICD-10 - I11.0) 03/28/2025 Type 2 diabetes mellitus with other circulatory complication, without long-term current use of insulin (ICD-10 - E11.59) 05/04/2025 Hypothyroidism, unspecified type (ICD-10 - E03.9) 05/11/2025 Type 2 diabetes mellitus with other circulatory complication, without long-term current use of insulin (ICD-10 - E11.59) labs drawn by Liana Walter LPN 05/04/2025 Type 2 diabetes mellitus with other circulatory complication, without long-term current use of insulin (ICD-10 - E11.59) labs drawn by Liana Walter LPN 03/28/2025 Chronic diastolic (congestive) heart failure (ICD-10 - I50.32) 03/22/2025 Chronic diastolic (congestive) heart failure (ICD-10 - I50.32) 07/21/2024 Hyperlipidemia, unspecified hyperlipidemia type (ICD-10 - E78.5) 12/08/2024 Hypertensive heart disease with heart failure (ICD-10 - I11.0) [facility] 12/08/2024 Chronic diastolic (congestive) heart failure (ICD-10 - I50.32) f/u [facility] 07/21/2024 Chronic diastolic (congestive) heart failure (ICD-10 - I50.32) labs drawn by Liana Walter LPN 03/28/2025 Hyperlipidemia, unspecified hyperlipidemia type (ICD-10 - E78.5) 12/08/2024 Hypothyroidism, unspecified type (ICD-10 - E03.9) 03/22/2025 Recurrent deep vein thrombosis (DVT) of right lower extremity (ICD-10 - I82.401) 12/08/2024 Recurrent deep vein thrombosis (DVT) of right lower extremity (ICD-10 - I82.401) 03/22/2025 Atrial fibrillation with rapid ventricular response (ICD-10 - I48.91) 03/22/2025 Hyperlipidemia, unspecified hyperlipidemia type (ICD-10 - E78.5) 12/08/2024 Atrial fibrillation with rapid ventricular response (ICD-10 - I48.91) 03/22/2025 Morbid (severe) obesity due to excess calories (ICD-10 - E66.01) 12/08/2024 Hyperlipidemia, unspecified hyperlipidemia type (ICD-10 - E78.5) 12/08/2024 Morbid (severe) obesity due to excess calories (ICD-10 - E66.01) Activity as tolerated. 12/08/2024 Other chronic pain (ICD-10 - G89.29) 12/08/2024 Reactive airway disease without complication, unspecified asthma severity, unspecified whether persistent (ICD-10 - J45.909) 12/08/2024 Other Care Coordination Assessment completed, signed and dated by provider during visit. Plan Of Treatment Next Appt Details Provider Name:Zeny Castillo , 06/22/2025 08:20:00 AM, [address], [facility], [place], [address], Insurance Providers Payer Name Payer Address Payer Phone Subscriber Number Group Number Insured Name Patient Relationship to Insured Coverage Start Date Coverage End Date [place] [employer]-[place] [id number] [facility] [address] [place], [place] [id number] Georgina York Self - patient is the insured [address] [place] [address] [id number] Georgina York Self - patient is the insured Medical (General) History Medical History History ICD Code Hypothyroidism macular degeneration. Right wet. Left Dry. Dr Hodges @ [facility] mtn home ar left humerus fracture gerd hx dvt right LE x2 episodes. last episod e [id number] Cardiology : Dr Jackson., q6mos. wp chronic right ankle and foot pain. dr seferino abel Surgical History Surgery Date(Month/Year) vein stripping bilat LE. spfd 2009 Bilateral TKR bunionectomy Left foot pin in foot d/t fx
--- OUTSIDE RECORDS SUMMARY | 2025-06-21 06:30 | XMS_ITS | Encounter Summary ---
Author Organization [facility] Address [address] [place] [address] Care Team Providers Care Diabetologist Name Role Phone Non-Staff, Physician Primary Care Provider Unava ilable Encounter Details Date Type Department Care Team (Latest Contact Info) Description 05/31/2009 Ancillary Orders [facility] Cardiac Thoracic Vascular Surg Estefani [address] [place] [id number] Rashad Grey MD NO ADDRESS ON FILE Varicose Veins of Lower Extremities with Ulcer and Inflammation; Varicose Veins of Lower Extremities with Other Complications Social History Tobacco Use Types Packs/Day Years Used Date Smoking Tobacco: Never Assessed Comments No Sex and Gender Information Value Date Recorded Sex Assigned at Not on file 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 Gender Identity Not on file Sexual Orientation Not on file documented as of this encounter Plan of Treatment Not on file documented as of this encounter Results * US VENOUS DOPPLER LEG RIGHT (05/31/2009 3:27 PM CDT) Anatomical Region Laterality Modality Lower Extremity Ultrasound Narrative 05/31/2009 6:38 PM CDT DOS: 05/31/2009 RIGHT LOWER EXTREMITY VENOUS DUPLEX EXAM Indication for study: Symptomatic varicosities with stasis changes Doppler venous of the right lower extremity demonstrates greater than 4 seconds of reflux in the right saphenous and lesser saphenous veins as well as the saphenofemoral junction. Engorgement is noted associated with suprapatellar, anterior tributary and posterior arch branches. Imaging demonstrates compressibility in the deep and superficial system. The great saphenous vein measures 30.8 mm in diameter just below the saphenofemoral junction. It is 7.8 at the level of the knee and 8.5 just below the knee. The lesser saphenous measures 6.8 mm in the popliteal area and 4.4 in the mid-calf it is greater than 10 mm in depth. Impression: Right lower extremity venous exam demonstrating no evidence of deep or superficial vein thrombosis. The great saphenous vein is markedly enlarged and demonstrates significant reflux. The lesser saphenous demonstrates significant reflux and may be amenable to endovenous ablation treatment. Tech: Irwin West RVT Procedure Note Enoch Daniels MD - 06/20/2009 DOS: 05/31/2009 RIGHT LOWER EXTREMITY VENOUS DUPLEX EXAM Indication for study: Symptomatic varicosities with stasis changes Doppler venous of the right lower extremity demonstrates greater than 4seconds of reflux in the right saphenous and lesser saphenous veins aswell as the saphenofemoral junction. Engorgement is noted associated withsuprapatellar, anterior tributary and posterior arch branches. Imagingdemonstrates compressibility in the deep and superficial system. Thegreat saphenous vein measures 30.8 mm in diameter just below thesaphenofemoral junction. It is 7.8 at the level of the knee and 8.5 justbelow the knee. The lesser saphenous measures 6.8 mm in the poplitealarea and 4.4 in the mid-calf it is greater than 10 mm in depth. Impression: Right lower extremity venous exam demonstrating no evidence ofdeep or superficial vein thrombosis. The great saphenous vein is markedlyenlarged and demonstrates significant reflux. The lesser saphenousdemonstrates significant reflux and may be amenable to endovenous ablationtreatment. Tech: Irwin West RVT us Rashad Grey MD US ORDERABLES Final Result documented in this encounter Visit Diagnoses Diagnosis Varicose Veins of Lower Extremities with Ulcer and Inflammation Varicose veins of lower extremities with ulcer and inflammation Varicose veins of lower extremities with other complications documented in this encounter Care Teams Diabetologist Relationship Specialty Start Date End Date Non-Staff, Physician NO ADDRESS ON FILE PCP - General 07/01/18 documented as of this encounter
--- OUTSIDE RECORDS SUMMARY | 2025-06-21 06:30 | XMS_ITS | Encounter Summary ---
Author Organization [facility] Address [address] [place] [address] Care Team Providers Care Cell Tower Climber Name Role Phone Non-Staff, Physician Primary Care Provider Unava ilable Encounter Details Date Type Department Care Team (Latest Contact Info) Description 07/04/2009 Ancillary Orders [facility] Cardiac Thoracic Vascular Surg Estefani [address] [place] [phone] Laura Mejia, QUAD STAYER NO ADDRESS ON FILE Unspecified Venous (Peripheral) Insufficiency; Varicose Veins of Lower Extremities with Other Complications Social History Tobacco Use Types Packs/Day Years Used Date Smoking Tobacco: Never Assessed Comments No Sex and Gender Information Value Date Recorded Sex Assigned at Not on file 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
--- OUTSIDE RECORDS SUMMARY | 2025-06-21 06:31 | XMS_ITS | Clinical Summary ---
Author Organization [facility] Address [address] Cabrera: Epic Prelude ADT [place]ADE[place] [phone] Care Team Providers Care Armed Guard Name Role Phone Non-Staff, Physician Primary Care Provider Unava ilable Medications docosahexaenoic acid/epa (FISH OIL ORAL) Take 1 Capsule by mouth daily. 06/23/2018 Active levothyroxine 137 mcg tablet Take 137 mcg by mouth daily willow analyst. 06/23/2018 Active apixaban (ELIQUIS) 2.5 mg tablet Take 1 Tablet by mouth 2 times daily. 07/23/2020 Active bisoprolol (ZEBETA) 5 mg tablet Take 1 Tablet by mouth daily. 10/12/2019 Active furosemide (LASIX) 20 mg tablet Take 20 mg by mouth daily. 08/29/2020 Active Vit C-Vit F-Nlslzl-RjYt-L utein (PRESERVISION) 226-90-0.8-5 mg Capsule Take 1 Capsule by mouth 2 times daily. 09/14/2015 Active MELOXICAM ORAL Take by mouth. Active omeprazole (PriLOSEC) 20 mg Capsule, Delayed Release(E.C.) Take 20 mg by mouth daily. Active Active Problems Problem Noted Date Diagnosed Date Acute deep vein thrombosis ( DVT) of tibial vein of right lower extremity 08/29/2020 Bilateral carpal tunnel syndrome 05/29/2017 Iliotibial band syndrome of left side 06/12/2016 Left TKA- Mobile 09/24/2015 09/20/2015 History of DVT of lower extremity 09/17/2015 Overview (12/27/2020): RLE after stillbirth Leukocytopenia 09/14/2015 Hyperkalemia 09/14/2015 History of irregular heartbeat 09/14/2015 Right TKA- Mobile 08/16/2014 08/15/2014 Obesity (BMI 30.0-34.9) 08/07/2014 Preoperative general physical examination 2013 Unspecified venous (peripheral) insufficiency Varicose veins of lower extr emities with other complications 10/02/2009 Hypothyroidism GERD (gastroesophageal reflux disease) Leukopenia Resolved Problems Problem Noted Date Diagnosed Date Resolved Date Right knee pain 06/29/2014 09/14/2015 Osteoarthritis of right knee 06/29/2014 09/14/2015 Encounters Date Type Department Care Team Description 05/02/2025 External Device Data STL ABSTRACTION Provider, Abstract 04/18/2025 External Device Data STL ABSTRACTION Provider, Abstract 04/05/2025 External Device Data STL ABSTRACTION Provider, Abstract from Last 3 Months Family History Medical History Relation Name Comments Healthy Brother 1 Usama Other Brother 2 Ludwinald high PSA Cancer Father Stanton prostate Arthritis-rheumatoid Mother Diann Hypertension Son 1 Harshal Healthy Son 2 Arline Relation Name Status Comments Brother 1 Usama Alive Brother 2 Darald Alive Father Stanton (Age 93) Mother Diann (Age 80) Son 1 Harshal Alive Son 2 Arline Alive Social History Tobacco Use Types Packs/Day Years Used Date Smoking Tobacco: Never Smokeless Tobacco: Never Tobacco Cessation:Counseling Given: Not Answered Alcohol Use Standard Drinks/Week Comments Yes 0 (1 standard drink = 0.6 oz pur e alcohol) Comments Unknown Sex and Gender Information Value Date Recorded Sex Assigned at Not on file Legal Sex Female 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 Gender Identity Not on file Sexual Orientation Not on file Last Filed Vital Signs Vital Sign Reading Time Taken Comments Blood Pressure 108/64 06/16/2024 10:11 AM CDT Pulse 60 06/16/2024 10:11 AM CDT Temperature 35.5 C (95.9 F) 07/01/2018 9:45 AM CDT Respiratory Rate 20 08/29/2020 1:10 PM ELECTRICAL MANAGER Oxygen Saturation 95% 06/16/2024 10:11 AM CDT Inhaled Oxygen Concentration - - Weight 103.4 kg (228 lb) 06/16/2024 10:11 AM CDT Height 162.6 cm (5' 4 ) 06/16/2024 10:11 AM CDT Body Mass Index 39.14 06/16/2024 10:11 AM CDT Plan of Treatment Health Maintenance Due Date Last Done Comments DTAP/TDAP/TD VACCINES (1 - Tdap) 1964 PNEUMOCOCCAL VACCINE 50+ YEARS (1 of 2 - PCV) 03/24/19 63 OSTEOPOROSIS SCREENING 2009 ZOSTER VACCINE (2 of 3) 12/20/2012 10/25/2012 RSV VACCINE (60+ or ) (1 - 1-dose 75+ series) 2019 INFLUENZA VACCINE (#1) 2025 Medical Devices Implanted Type Area Insurance Salesman Device Identifier Shelf Expiration Date Model / Serial / Lot Simplex Hi Viscosity 6194-1-010 - [id number] Implanted:Qty: 2 on 08/16/2014 Cement Right: Knee [employer]- Freeze Tag INT INC 01/29/2015 6194-1-010 / / [id number] Cement Simplex Hvisc 6194-1-001 - [id number] Implanted:Qty: 2 on 09/24/2015 by Jean-Paul Adan MD Cement Left: Knee [employer] 03/30/2017 6194-1-001 / / [id number] Comp Fem Trthln Ps Sz4 5515-F-402 - [id number] Implanted:Qty: 1 on 08/16/2014 Knee Right: Knee [employer] 02/28/2019 5515-F-402 / / [id number] Comp Tib Trthln Unvrsl #4 5521-B-400 - [id number] Implanted:Qty: 1 on 08/16/2014 Knee Right: Knee [employer] 07/31/2019 5521-B-400 / / MISEA [id number] Tib Trthln X3 Ps 5532-G-413 - [id number] Implanted:Qty: 1 on 08/16/2014 Knee Right: Knee [employer] 07/01/2019 5532-G-413 / / [id number] Patella Trthln Asym Poly 5551-L-350 - [id number] Implanted:Qty: 1 on 08/16/2014 Knee Right: Knee [employer]- HOW[employer]ICA INT INC 05/31/2019 5551-L-350 / / [id number] Comp Fem Trthln Cr Sz4 Lt 5510-F-401 - [id number] Implanted:Qty: 1 on 09/24/2015 by Jean-Paul Adan MD Knee Left: Knee [employer] 07/16/2020 5510-F-401 / / [id number] Comp Tib Triathlon Cmnt 5520-B-400 - [id number] Implanted:Qty: 1 on 09/24/2015 by Jean-Paul Adan MD Knee Left: Knee [employer] 02/28/2020 5520-B-400 / / [id number] Insert Tib Trthln X3 Cs 5531-G-413 - [id number] Implanted:Qty: 1 on 09/24/2015 by Jean-Paul Adan MD Knee Left: Knee [employer] 05/30/2017 5531-G-413 / / [id number] Patella Trthln Asym Poly 5551-L-320 - [id number] Implanted:Qty: 1 on 09/24/2015 by Jean-Paul Adan MD Knee Left: Knee [employer] 08/11/2020 5551-L-320 / / [id number] Insurance MEDICARE PART A AND B [facility] Care Teams Armed Guard Relationship Specialty Start Date End Date Non-Staff, Physician NO ADDRESS ON FILE PCP - General 07/01/18
--- NOTE | 2025-06-21 06:32 | XRR_ITS ---
PROCEDURE INFORMATION: Exam: XR Chest Exam date and time: 06/21/2025 6:33 AM Age: 80 years old Clinical indication: Other: Rectal bleeding; Additional info: Dyspnea/cough TECHNIQUE: Imaging protocol: Radiologic exam of the chest. Views: 1 view. COMPARISON: CT chest con [id number] 10/30/2021 2:11 PM FINDINGS: Lungs: Slight hypoventilatory changes at the lung bases. Small calcified granuloma on the right. Pleural spaces: Unremarkable. No pleural effusion. No pneumothorax. Heart/Mediastinum: See Vasculature finding. Vasculature: Mild cardiomegaly and uncoiling of the thoracic aorta. Bones/joints: Unremarkable. XR/XR chest 1V portable [id number] IMPRESSION: No acute findings.
--- NOTE | 2025-06-21 06:34 | W.ED.GIBLEED ---
HPI - GI Bleed General: Chief complaint: GI Bleed Stated complaint: Rectal Bleeding Time Seen by Provider: 06/21/25 06:29 History of Present Illness: 80-year-old female who presents to the emergency room with complaints of at least 3 episodes of melanic stool overnight she has felt very weak. She has a history of DVT and A-fib she is on Eliquis. She has been taking her Eliquis regularly. Her last dose was last evening. She has not had any chest pain she did not have any abdominal pain she just generally has not felt well yesterday and then began having the melanic stools last night. She has not had this before. About 4 to 6 years ago she considered getting a colonoscopy however due to her age they opted against it because at that time it was considered only routine screening colonoscopy. No previous history of GI bleeds. Associated symptoms: Denies abdominal pain, chills, fever(s) or rash Related Data Home Medications ?Medication ?Instructions ?Recorded ?Confirmed vitamins A,C,G-uuif-uxruqb 4,296 1 cap PO BID 11/14/19 06/21/25 mcg-226 mg-90 mg capsule (PreserVision AREDS) apixaban 5 mg tablet (Eliquis) 5 mg PO BID 06/21/25 06/21/25 bisoprolol fumarate 5 mg tablet 5 mg PO QAM 06/21/25 06/21/25 furosemide 20 mg tablet 20 mg PO BID 06/21/25 06/21/25 levothyroxine 175 mcg tablet 175 mcg PO QAM 06/21/25 06/21/25 omega-3 fatty acids 1,000 mg 1,000 mg PO QAM 06/21/25 06/21/25 capsule omeprazole 20 mg capsule,delayed 20 mg PO QAM 06/21/25 06/21/25 release Previous Rx's ?Medication ?Instructions ?Recorded Thumb spica (off shelf) #1 ea 03/13/22 Spectrum AFO to right #1 ea 12/29/22 Supinator to right #1 ea 12/29/22 non articulating AFO #1 ea 03/21/24 potassium chloride 10 mEq 10 meq PO DAILY #90 tabs 07/21/24 tablet,extended release Allergies Allergy/AdvReac Type Severity Reaction Status Date / Time No Known Allergies Allergy Verified 06/21/25 06:31 Review of Systems Const: Denies: fever(s) or chills Card: Denies: chest pain Resp: Denies: dyspnea GI: Denies: abdominal pain : Denies: dysuria, urinary frequency or urinary urgency Musc: Denies: neck pain or back pain Skin/Breast: Denies: rash PFSH ED PFSH: Medical History Deep vein thrombosis (DVT) Hypothyroid Asthma GERD (gastroesophageal reflux disease) Surgical History History of cataract extraction H/O total hysterectomy H/O vascular surgery History of total knee arthroplasty bilateral History of foot surgery left History of tonsillectomy Social History Smoking and tobacco/nicotine status: never used tobacco/nicotine Second hand smoke exposure: Yes Alcohol intake: never Substance/Drug Use: never Lives independently: Yes Household members: spouse Housing: House Marital status: Current occupational status: retired Pets and animals: No Do you think of yourself as: Straight/Heterosexual Current gender identity: Female Special lima needs: No Physical Exam Const: COMMON NORMALS: no acute distress GENERAL APPEARANCE: cooperative and comfortable ORIENTATION/CONSCIOUSNESS: Yes awake, Yes oriented to person, Yes oriented to place and Yes oriented to time HENMT: COMMON NORMALS: normocephalic, atraumatic and hearing grossly normal bilaterally HEAD & SCALP: normocephalic and atraumatic Resp: COMMON NORMALS: normal respiratory effort, No retractions, No use of accessory muscles and clear to auscultation bilaterally AUSCULTATION: clear to auscultation bilaterally Cardio: COMMON NORMALS: regular rate, regular rhythm and No murmurs present (Cardio) RATE: regular rate RHYTHM: regular rhythm GI: COMMON NORMALS: Soft to palpation and No hepatosplenomegaly present AUSCULTATION: Yes normoactive bowel sounds PALPATION: Yes Soft to palpation, No Tenderness to palpation present (GI), No Guarding due to palpation present (GI) and Yes No hepatosplenomegaly present Extremity: COMMON NORMALS: normal to inspection, capillary refill normal, no clubbing, cyanosis or edema, no calf tenderness and no pedal edema Neuro: SENSORIUM/ORIENTATION: Yes oriented to person, Yes oriented to place and Yes oriented to time Skin: COMMON NORMALS: no rashes or lesions noted GENERAL SKIN EXAM: no rashes or lesions noted Course Vital Signs: Vital signs: Vital Signs Temperature 97.7 F 06/22/25 11:21 Pulse Rate 92 06/22/25 11:21 Respiratory Rate 18 06/22/25 11:21 Blood Pressure 124/61 06/22/25 11:21 Pulse Oximetry 96 06/22/25 11:21 Oxygen Delivery Me thod Room Air 06/22/25 09:46 MDM - GI Bleed Medical Decision Making Patient not have any active bleeding hemoglobin is 7 8 we have ordered a unit of blood. Discussed with surgery and with Dr. Zavala. 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 Burnett states she will monitor and reconsider if she has signs of active bleeding. Begin transfusion of blood. Discussed with the patient orders written. Discussed with the patient. She is hesitant wants to continue her anticoagulant. Discussed with her that taking anticoagulants oh is a risk versus benefit. While there is some risk for stroke she has shown signs of bleeding and her hemoglobin has decreased. It went need to be held until we can demonstrate that she is stable. Medical Records I reviewed the patient's medical records. Lab Data I reviewed the patient's lab results. 06/22/25 08:00 06/22/25 03:55 Radiology Impressions Abdomen/Pelvis CT 06/21/25 06:53 IMPRESSION: No acute subdiaphragmatic pathology. Chest X-Ray 06/21/25 17:35 IMPRESSION: 1. No acute findings. 2. Right PICC in place, tip overlies lower SVC. Laboratory Results WBC 6.96 10^3/uL (3.29-11.43) 06/21/25 06:30 RBC 2.69 10^6/uL (3.85-5.65) L 06/21/25 06:30 Hgb 7.80 g/dL (11.27-16.99) L 06/21/25 06:30 Hct 25.0 % (36-47) L 06/21/25 06:30 MCV 92.9 fl (85-98) 10/22/25 06:30 MCH 29.0 pg (27-33) 06/21/25 06:30 MCHC 31.2 g/dL (30-55) 06/21/25 06:30 RDW 15.1 % (12.1-15.1) 06/21/25 06:30 Plt Count 208 10^3/cmm (157-399) 06/21/25 06:30 MPV 10.1 fL (7.4-10.4) 06/21/25 06:30 Neut % (Auto) 72.6 % 06/21/25 06:30 Lymph % (Auto) 18.5 % 06/21/25 06:30 [place] % (Auto) 8.0 % 06/21/25 06:30 Eos % (Auto) 0.1 % 06/21/25 06:30 Baso % (Auto) 0.4 % 06/21/25 06:30 Neut # (Auto) 5.04 10^3/uL (1.8-7.7) 06/21/25 06:30 Lymph # (Auto) 1.3 10^3/uL (0.8-4.8) 06/21/25 06:30 [place] # (Auto) 0.6 10^3/uL (0.2-0.9) 06/21/25 06:30 Eos # (Auto) 0.0 10^3/uL (0.0-0.8) 06/21/25 06:30 Baso # (Auto) 0.0 10^3/uL (0.0-0.1) 06/21/25 06:30 Nucleated RBC % (auto) 0 % 06/21/25 06:30 Nucleated RBCs # 0.0 /100WBC 06/21/25 06:30 PT 15.80 SECONDS (12.1-14.9) H 06/21/25 06:30 INR 1.18 (0.8-1.2) 06/21/25 06:30 APTT 20.1 SECONDS (23.9-36.7) L 06/21/25 06:30 Sodium 140 mmol/L (136-145) 06/21/25 06:30 Potassium 4.1 mmol/L (3.5-5.1) 06/21/25 06:30 Chloride 107 mmol/L (98-107) 06/21/25 06:30 Carbon Dioxide 17 mmol/L (22-29) L 06/21/25 06:30 Anion Gap 20.1 (5-19) H 06/21/25 06:30 BUN 38 mg/dL (8-23) H 06/21/25 06:30 Creatinine 0.7 mg/dL (0.5-0.9) 06/21/25 06:30 GFR Calculation Not Reportable 06/21/25 06:30 Glucose 155 mg/dL (65-115) H 06/21/25 06:30 Calculated Osmolality 302 mOsm/kg (285-295) H 06/21/25 06:30 Lactic Acid 3.3 mmol/L (0.5-2.2) H 06/21/25 08:00 Calcium 8.7 mg/dL (8.5-10.5) 06/21/25 06:30 Total Bilirubin 0.3 mg/dL (0.15-1.2) 06/21/25 06:30 AST 14 U/L (0-32) 06/21/25 06:30 ALT 10 U/L (0-33) 06/21/25 06:30 Alkaline Phosphatase 45 U/L (35-105) 06/21/25 06:30 Total Protein 5.0 g/dL (6.6-8.7) L 06/21/25 06:30 Albumin 3.1 g/dL (3.5-5.2) L 06/21/25 06:30 Globulin 1.9 g/dL (1.3-4.6) 06/21/25 06:30 Blood Type A Negative 06/21/25 07:07 Rho(D) Type Rh negative 06/21/25 07:07 Antibody Screen Negative 06/21/25 07:07 Crossmatch See Detail 06/21/25 07:07 All radiology interpretation(s) finalized by discharge Discharge Plan Discharge Patient Disposition: Admitted As Inpatient Admit Provider: Serg Burnett Clinical Impression: Deep vein thrombosis (DVT), Atrial fibrillation, GI bleed Condition: Stable Coding Level of Care Code ED Java Software for Sophie Mancini
--- NOTE | 2025-06-21 06:37 | ECG_ITS ---
[facility]: 2025[facility]21 Pat Name: Georgina York Department: Room: Gender: Female Taker Down: : 1945 Requested By: Shawn Plascencia Order Number: [id number] Nubia MD: Basim Fry M.D. Measurements Intervals [place] Rate: 82 P: 28 ME: 192 QRS: 1 QRSD: 87 T: 16 QT: 361 QTc: 422 Interpretive Statements SINUS RHYTHM WITH FREQUENT SUPRAVENTRICULAR PREMATURE COMPLEXES Incomplete right bundle branch block pattern LOW QRS VOLTAGE IN PRECORDIAL LEADS [QRS DEFLECTION < 1.0 mV IN CHEST LEADS] ST DEPRESSION, CONSIDER SUBENDOCARDIAL INJURY [0.1+ mV ST DEPRESSION] No previous ECG available for comparison Electronically Signed On 06-21-2025 22:52:57 CDT by Basim Fry M.D. [email or web address]
[2025-06-21 06:46] LABS: Hematocrit 25.0 % (36-47); Hemoglobin 7.80 g/dL (11.27-16.99); Mean Corpuscular HGB Conc 31.2 g/dL (30-55); Mean Corpuscular Hemoglobin 29.0 pg (27-33); Mean Corpuscular Volume 92.9 fl (85-98); Nucleated Red Blood Cells % 0 %; Platelet Count 208 10^3/cmm (157-399); Red Blood Count 2.69 10^6/uL (3.85-5.65); White Blood Count 6.96 10^3/uL (3.29-11.43)
--- NOTE | 2025-06-21 06:53 | CTR_ITS ---
PROCEDURE INFORMATION: Exam: CT Abdomen And Pelvis With Contrast Exam date and time: 06/21/2025 7:38 AM Age: 80 years old Clinical indication: Abdominal pain; Generalized; Additional info: Abd pain TECHNIQUE: Imaging protocol: Computed tomography of the abdomen and pelvis with contrast. Radiation optimization: All CT scans at this facility use at least one of these dose optimization techniques: automated exposure control; mA and/or kV adjustment per patient size (includes targeted exams where dose is matched to clinical indication); or iterative reconstruction. Contrast material: OMNIPAQUE 350; Contrast volume: 100 ml; Contrast route: INTRAVENOUS (IV); COMPARISON: CR XR pelvis 1-2V* [id number] 12/16/2022 1:31 PM RADIATION DOSE METRICS: Total DLP (mGy-cm): 1015.43 FINDINGS: Diaphragm: Small hiatal hernia. Liver: 16 mm cyst or hemangioma in the mid right lobe of the liver. Gallbladder and biliary ducts: Normal. No calcified stones. No ductal dilation. Pancreas: Normal. No ductal dilation. Spleen: Normal. No splenomegaly. Adrenal glands: Normal. No mass. Kidneys and ureters: Normal. No hydronephrosis. Stomach and bowel: Unremarkable. No obstruction. No mucosal thickening. Appendix: No evidence of appendicitis. Intraperitoneal space: Unremarkable. No free air. No significant fluid collection. Vasculature: Unremarkable. No abdominal aortic aneurysm. Lymph nodes: Unremarkable. No enlarged lymph nodes. Urinary bladder: Unremarkable as visualized. Reproductive: Hysterectomy. Bones/joints: Unremarkable. No acute fracture. Soft tissues: Unremarkable. CT/CT abdomen pelvis w con* [id number] IMPRESSION: No acute subdiaphragmatic pathology.
[2025-06-21 07:05] LABS: Alanine Aminotransferase 10 U/L (0-33); Albumin Level 3.1 g/dL (3.5-5.2); Alkaline Phosphatase 45 U/L (35-105); Blood Urea Nitrogen 38 mg/dL (8-23); Calcium 8.7 mg/dL (8.5-10.5); Carbon Dioxide 17 mmol/L (22-29); Chloride 107 mmol/L (98-107); Creatinine Clr Calc Pharmacy 63.3283; Globulin 1.9 g/dL (1.3-4.6); Glucose 155 mg/dL (65-115); Osmolality Calculated 302 mOsm/kg (285-295); Sodium 140 mmol/L (136-145); Total Protein 5.0 g/dL (6.6-8.7)
[2025-06-21 07:12] LABS: Anion Gap 20.1 (5-19); Aspartate Amino Transferase 14 U/L (0-32); Potassium 4.1 mmol/L (3.5-5.1)
[2025-06-21] MEDS: pantoprazole 40 mg SDV 80 MG IVP (07:13)
[2025-06-21 07:19] LABS: INR 1.18 (0.8-1.2); Partial Thromboplastin Time 20.1 SECONDS (23.9-36.7); Prothrombin Time 15.80 SECONDS (12.1-14.9)
[2025-06-21] MEDS: tranexamic acid 1,000 MG/100 ML PREMIX 600 MG IV (08:13)
[2025-06-21 08:26] LABS: Lactic Sepsis W/Reflex 3.3 mmol/L (0.5-2.2)
--- NOTE | 2025-06-21 09:14 | USCV_ITS ---
Georgina York Age: 80 Gender: F : 1945 Exam Date: 06/21/2025 13:22 Ordering Phys: Serg Burnett MD Technologist: Exam Location: [facility] [place] Indication: swelling PROCEDURES: The venous duplex Doppler examination of both lower extremities was performed in the standard fashion. The following venous structures were evaluated: common femoral vein, profunda vein, proximal portion of the greater saphenous vein, superficial femoral vein, and the popliteal vein. FINDINGS: Normal 2-D Doppler and augmentation and compressibility throughout the lower extremity venous structures. Additional imaging through the proximal calf veins also reveals no thrombus. Limited evaluation of the greater saphenous vein is patent with no thrombus. CONCLUSIONS No evidence of right lower extremity DVT. No evidence of left lower extremity DVT. Kevyn Humphrey MD (Electronically Signed) Final Date: 21 June 2025 14:43 S
[2025-06-21 09:53] LABS: Reflex Lactate Order REFLEX LACTIC ORDERD
[2025-06-21] MEDS: D5-NS 0.45% + KCL 20 mEq 20 MEQ/1,000 ML BAG 100 MEQ IV ×2 (09:58→20:55)
--- NOTE | 2025-06-21 10:00 | PM.CONSULT ---
Providers/Reason For Consult Consulting Physician/Specialty*: amrit manzano MD general surgery Reason for Consult*: GI bleed Requesting Physician: MD Angela ER provider Attending Physician: Serg Burnett MD Primary Care Provider: TIAGO Schmidt History of Present Illness History of Present Illness Georgina York is a 80 year old female with first episode of GI bleed on eliquis. HGB 7's and light headed. History of DVT in leg and afib. She has had 2-3 melanotic BM per ER and family believes black stools or darker stools. No N/V and may have some vague right sided abdominal pain. No history of PUD. Never had colonoscopy before. No history of CAD or CVA in the past. Review of Systems Narrative: Constitutional: denies rigors, singnificant weight gain, increased appetite HEENT: denies chronic cough, blurry vision, excessive tearing, eye pain, flashing lights, odynophagia, painful mastication, change in voice, change in taste, chronic sore throat, hypersalivation Heart: denies racing heart, palpitations, othropnea, PND Lungs: denies hemoptysis, pain with deep inspiration, chronic bronchitis GI: denies hematemesis, hematochezia, dysphagia, tenesmus : denies polyuria, hematuria, painful micturation Musculoskeletal: denies hemarthrosis, Muscle wasting, change in amubation Neuro: denies new onset syncope, dysesthesia, dysequilibrium, ptosis eyelid or face SKin: denies new onset hyperalgia, new rash new cyanosis Endocrine: denies new polyuria, polydipsia, polyphagia, heat intolerance, excessive energy Hem/Onc: denies new petechiae, swollen glands, new excessive epstaxis Psych: denies racing thought Medications/Allergies Home Medications ?Medication ?Instructions ?Recorded ?Confirmed ?Last Taken ?Type vitamins A,C,W-wnnk-cupoan 4,296 1 cap PO BID 11/14/19 06/21/25 06/20/25 History mcg-226 mg-90 mg capsule (PreserVision AREDS) Thumb spica (off shelf) #1 ea 03/13/22 06/21/25 Unknown Rx Spectrum AFO to right #1 ea 12/29/22 06/21/25 Unknown Rx Supinator to right #1 ea 12/29/22 06/21/25 Unknown Rx non articulating AFO #1 ea 03/21/24 06/21/25 Unknown Rx potassium chloride 10 mEq 10 meq PO DAILY #90 tabs 07/21/24 06/21/25 06/20/25 Rx tablet,extended release apixaban 5 mg tablet (Eliquis) 5 mg PO BID 06/21/25 06/21/25 06/20/25 History bisoprolol fumarate 5 mg tablet 5 mg PO QAM 06/21/25 06/21/25 06/20/25 History furosemide 20 mg tablet 20 mg PO BID 06/21/25 06/21/25 06/20/25 History levothyroxine 175 mcg tablet 175 mcg PO QAM 06/21/25 06/21/25 06/20/25 History omega-3 fatty acids 1,000 mg 1,000 mg PO QAM 06/21/25 06/21/25 06/20/25 History capsule omeprazole 20 mg capsule,delayed 20 mg PO QAM 06/21/25 06/21/25 06/20/25 History release Allergies Allergy/AdvReac Type Severity Reaction Status Date / Time No Known Allergies Allergy Verified 06/21/25 06:31 Current Medications Generic Name Dose Route Start Last Admin Trade Name Freq PRN Reason Stop Dose Admin Potassium Chloride/Dextrose/Sod Cl 20 meq in 1,000 mls @ 100 mls/hr 06/21/25 09:14 06/21/25 09:58 D5-Ns 0.45% + Kcl 20 Meq IV 100 mls/hr .Q10H SUNG Administration Sodium Chloride 50 ml 06/21/25 07:41 06/21/25 09:59 Sodium Chloride 0.9% 100 Ml Bag IV 06/22/25 07:42 50 ml PRN PRN Administration Blood transfusion prime and flush PFSH Acute PFSH: Medical History (Updated 06/21/25 @ 10:05 by Jan Manzano MD) Atrial fibrillation Deep vein thrombosis (DVT) Hypothyroid Asthma GERD (gastroesophageal reflux disease) Surgical History History of cataract extraction H/O total hysterectomy H/O vascular surgery History of total knee arthroplasty bilateral History of foot surgery left History of tonsillectomy Social History Smoking and tobacco/nicotine status: never used tobacco/nicotine Second hand smoke exposure: Yes Alcohol intake: never Substance/Drug Use: never Lives independently: Yes Household members: spouse Housing: House Marital status: Current occupational status: retired Pets and animals: No Do you think of yourself as: Straight/Heterosexual Current gender identity: Female Special lima needs: No Vitals/I&O/Wt Last Vital Signs Temp 98.8 F 06/21/25 09:45 Pulse 80 06/21/25 09:45 Resp 15 06/21/25 09:45 BP 128/63 06/21/25 09:45 Pulse Ox 97 06/21/25 09:45 O2 Del Method Room Air 06/21/25 09:45 06/20/25 06/21/25 06/21/25 22:59 06:59 14:59 Intake Total 100 / 100 Balance 100 / 100 Weight last 48 hrs Weight 233 lb 11.04 oz Weight 220 lb Physical Exam Narrative: Patient is a well developed well nourished and in NAD and is afebrile with vitals stable and is answering questions appropriately with a normal affect and is alert and oriented x3 HEENT: normocephalic with normal external ears and nonicteric, oral mucosa moist and dentition normal for age, trachea midline with no large masses visualized Heart: RRR, no gallops murmurs or rubs, normal PMI with no thrills Lungs: normal excursions, no loud audible wheezing, no subcutaneous emphysema Abdomen: nondistended, no gross hepatosplenomegaly, no masses, no rigidity or rebound, no loud borborygmi Neuro: nonfocal, SPENCER, grossly normal sensation Musculoskeletal: good muscle tone, no fasciculations, normal gait Skin: pink warm and dry with no rashes or ecchymosis Vascular: good radial pulses, no ulceration, less than 2 second capillary refill in hand : deferred Data 06/21/25 06:30 06/21/25 06:30 A&P Assessment and plan 1. GI bleed: Plan: Would reverse eliquis if possible. Bleeding will likely stop once anticoagulation is reversed. Transfuse as necessary. Would need full reversal of anticoagulation prior to any therapeutic endoscopy either by reversing eliquis or waiting to clear kidneys. Would need bowel prep prior to any colonoscopy. Patient can get EGD and colonoscopy at same time. If continues to bleed rapidly then may need EGD done first. Family present in room. They understands risks, benefits and alternatives to procedure of EGD/colonoscopy. Will continue to monitory patient to see if she has stopped bleeding. HR right now 70's. PDMP PDMP Reviewed: Not Reviewed Coding Level of Care Code 19223 Diagnoses GI bleed K92.2
[2025-06-21 10:09] LABS: Hematocrit 21.3 % (36-47); Hemoglobin 6.80 g/dL (11.27-16.99)
[2025-06-21 10:34] LABS: Lactic Acid level (Lactate) 2.0 mmol/L (0.5-2.2)
[2025-06-21 10:35] LABS: Cholesterol 105 mg/dL (0-200); Ferritin 21 ng/mL (15-150); HDL Cholesterol 32 mg/dL (60-100); Iron 59 ug/dL (37-145); Thyroid Stimulating Hormone 0.25 uIU/mL (0.27-4.20); Total Iron Binding Capacity 253 mcg/dl; Triglycerides 127 mg/dL (0-150); Unsaturated Iron Binding 194 ug/dL (112-347)
[2025-06-21 10:43] LABS: Estmated Average Glucose 105; Hemoglobin A1C 5.3 % (4.0-6.0)
[2025-06-21 13:20] LABS: Glucose Urine UA Negative (Normal); Nitrate Urine Negative (Negative)
[2025-06-21 13:25] LABS: Add Urine Microscopic? YES
[2025-06-21 13:26] LABS: Specific Gravity, Urine 1.052 (1.005-1.030)
[2025-06-21] MEDS: sucralfate 1 gm/10 mL Oral Liq UDC PO ×3 (13:38→23:28)
[2025-06-21 14:53] LABS: Hematocrit 24.6 % (36-47); Hemoglobin 7.90 g/dL (11.27-16.99)
--- NOTE | 2025-06-21 15:07 | ECG_ITS ---
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 Measurements Intervals [place] Rate: 129 P: 132 GA: 211 QRS: 182 QRSD: 110 T: 140 QT: 340 QTc: 499 Interpretive Statements SINUS TACHYCARDIA WITH FIRST DEGREE AV BLOCK ARM LEADS REVERSED [INVERTED P AND QRS IN I] Compared to ECG 06/21/2025 07:15:45 First degree AV block now present Sinus rhythm no longer present ST (T wave) deviation no longer present Electronically Signed On 06-21-2025 16:52:09 CDT by Basim Fry M.D. [id number] [id number]
--- NOTE | 2025-06-21 15:12 | PC.NURSE ---
Patient's heart rate went up to 133 and blood pressure dropped to MAP of 70. Dr. Ames was notified and he ordered to give 1 liter bolus of normal saline and to have levophed on standby in case patient's blood pressure dropped even further.
[2025-06-21] MEDS: factor xa, inactivated-zhzo 400 MG in empty flexible container 1 EACH, non-DEHP filter ... 180 MG IV (15:36)
[2025-06-21] MEDS: factor xa, inactivated-zhzo 480 MG in empty flexible container 1 EACH, non-DEHP filter ... 24 MG IV (15:56)
[2025-06-21 16:12] LABS: Hematocrit 23.4 % (36-47); Hemoglobin 7.50 g/dL (11.27-16.99)
[2025-06-21 16:33] LABS: Troponin(5th) Baseline 12 ng/L (0-10)
[2025-06-21 16:34] LABS: Lactate (Lactic Acid level) 2.7 mmol/L (0.5-2.2)
[2025-06-21 16:48] LABS: Anion Gap 16.1 (5-19); Blood Urea Nitrogen 31 mg/dL (8-23); Calcium 8.2 mg/dL (8.5-10.5); Carbon Dioxide 18 mmol/L (22-29); Chloride 112 mmol/L (98-107); Creatinine Clr Calc Pharmacy 65.4910; Glucose 126 mg/dL (65-115); Osmolality Calculated 302 mOsm/kg (285-295); Potassium 4.1 mmol/L (3.5-5.1); Sodium 142 mmol/L (136-145)
--- NOTE | 2025-06-21 16:55 | ECG_ITS ---
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 Measurements Intervals [place] Rate: 82 P: 6 WI: 184 QRS: -1 QRSD: 116 T: 26 QT: 393 QTc: 460 Interpretive Statements SINUS RHYTHM LOW QRS VOLTAGE IN PRECORDIAL LEADS [QRS DEFLECTION < 1.0 mV IN CHEST LEADS] POSSIBLE RIGHT VENTRICULAR CONDUCTION DELAY [RSR (QR) IN V1/V2] Compared to ECG 06/21/2025 15:07:25 Low QRS voltage now present Sinus tachycardia no longer present First degree AV block no longer present Electronically Signed On 06-21-2025 22:56:37 CDT by Basim Fry M.D. [id number]
--- NOTE | 2025-06-21 16:57 | PM.HP ---
Providers/Chief Complaint Admitting Physician: Serg Burnett MD Primary Care Provider: TIAGO Schmidt Chief Complaint: Rectal Bleeding History of Present Illness Georgina York is a 80 year old female with a past medical history of atrial fibrillation, DVT on Eliquis, hypothyroidism, who presents [facility] due to complaints of black tarry stools. Patient tells me that she took her Eliquis at about 6 PM last night, she did have an upset stomach, some epigastric discomfort, she denies a prior history of GI bleeds, no history of anemia, she reports that this morning she had 3 episodes of black tarry bowel movements associated lightheadedness dizziness and weakness, no nausea, no vomiting, no alcoholism, no drug use, no smoking. In the emergency room she was found to be orthostatic, hemoglobin down to 6.8, was given 1 unit of PRBC. Patient and son at bedside, discussed that we will give her 1 unit of blood and monitor hemodynamics closely in the ICU, TXA, will keep her n.p.o., general surgery is considering doing a EGD colonoscopy potentially tomorrow based on the clinical progress so far hemodynamically her blood pressures are reasonable, she is not tachycardic, she is on room air she is alert oriented, plan is to continue to monitor and she does not have any active black tarry stools currently. Patient was reexamined in the ICU, with general surgery with the patient's family, discussion was made about Andexxa use, at this time roughly at noon time she was alert oriented x 3, follow commands normotensive, room air, no tachycardia no black tarry bowel movements she is receiving her first unit of blood, no abdominal pain, her lactic acid this morning was 3.3, trended down to 2.0. Discussion with general surgery is states that as she is hemodynamically stable, will hold off on a andexxa use, monitor hemoglobin continue medically managed, plan for EGD and and colonoscopy tomorrow major clinical progress, monitor closely keep her in bed, monitor her hemoglobin, monitor lactic acid, transfuse blood products further if needed based on clinical progress. However if she does become hemodynamically unstable, have active black tarry stools, we will go ahead and proceed with Andexxa use, as it has been about 12 hours since she is taking her last dose of 5 mg of Eliquis. She is also worried about her increased risk of a stroke and DVT, discussed risks and benefits of holding anticoagulant therapy, she voiced understanding, all questions answered, agreed to proceed. Earlier this afternoon at roughly 3 PM, Georgina started to complain of abdominal pain, as if she was can have a bowel movement, heart rate increased to 130s, became hypotensive, MAP less than 65, with tachypnea, tachycardia. Order placed for 1 unit of blood, a liter bolus normal saline. discussed with general surgery Andexxa use with her hemodynamic instability, her lactic acid has trended up to 2.7, general surgery and I agree with proceeding with andexxa use given patient's developing hemodynamic instability, hemoglobin down to 7.5 after unit of blood, abdominal pain, complaints of feeling like she is going to have a bowel movement, concerns for life-threatening GI bleed. I also saw Georgina, she is tachycardic, tachypneic, feeling unwell, complaining of abdominal pain, feeling as if she is going to have a bowel movement, abdomen soft, slightly distended, no guarding, no rebound, no. Her MAP is less than 65 she is receiving fluid therapy, order placed for 1 unit of blood, 1 unit FFP, andexxa. Discussed with patient the risks and benefits of andexxa, she voiced understanding, all questions answered, shared decision making, agreed to proceed. Discussed with patient that plan is to continue to monitor hemodynamics monitor hemoglobin trend, if she responds to these interventions we can still proceed with EGD and colonoscopy tomorrow morning. However if she continues to have hemodynamic instability, pain, downward trending hemoglobin, then we will go ahead and proceed with EGD more urgently. Review of Systems Card: Denies: chest pain Resp: Denies: dyspnea GI: Reports: abdominal pain Medications/Allergies Home Medications ?Medication ?Instructions ?Recorded ?Confirmed ?Last Taken ?Type vitamins A,C,Y-vrnu-yzzdpv 4,296 1 cap PO BID 11/14/19 06/21/25 06/20/25 History mcg-226 mg-90 mg capsule (PreserVision AREDS) Thumb spica (off shelf) #1 ea 03/13/22 06/21/25 Unknown Rx Spectrum AFO to right #1 ea 12/29/22 06/21/25 Unknown Rx Supinator to right #1 ea 12/29/22 06/21/25 Unknown Rx non articulating AFO #1 ea 03/21/24 06/21/25 Unknown Rx potassium chloride 10 mEq 10 meq PO DAILY #90 tabs 07/21/24 06/21/25 06/20/25 Rx tablet,extended release apixaban 5 mg tablet (Eliquis) 5 mg PO BID 06/21/25 06/21/25 06/20/25 History bisoprolol fumarate 5 mg tablet 5 mg PO QAM 06/21/25 06/21/25 06/20/25 History furosemide 20 mg tablet 20 mg PO BID 06/21/25 06/21/25 06/20/25 History levothyroxine 175 mcg tablet 175 mcg PO QAM 06/21/25 06/21/25 06/20/25 History omega-3 fatty acids 1,000 mg 1,000 mg PO QAM 06/21/25 06/21/25 06/20/25 History capsule omeprazole 20 mg capsule,delayed 20 mg PO QAM 06/21/25 06/21/25 06/20/25 History release Allergies Allergy/AdvReac Type Severity Reaction Status Date / Time No Known Allergies Allergy Verified 06/21/25 06:31 PFSH Acute PFSH: Medical History (Updated 06/21/25 @ 17:10 by Serg Burnett MD) Atrial fibrillation Deep vein thrombosis (DVT) Hypothyroid Asthma GERD (gastroesophageal reflux disease) Surgical History History of cataract extraction H/O total hysterectomy H/O vascular surgery History of total knee arthroplasty bilateral History of foot surgery left History of tonsillectomy Social History Smoking and tobacco/nicotine status: never used tobacco/nicotine Second hand smoke exposure: Yes Alcohol intake: never Substance/Drug Use: never Lives independently: Yes Household members: spouse Housing: House Marital status: Current occupational status: retired Pets and animals: No Do you think of yourself as: Straight/Heterosexual Current gender identity: Female Special lima needs: No Vitals/I&O/Wt Last Vital Signs Temp 99.3 F 06/21/25 16:02 Pulse 84 06/21/25 16:02 Resp 18 06/21/25 16:29 BP 126/44 06/21/25 16:02 Pulse Ox 100 06/21/25 16:02 O2 Del Method Room Air 06/21/25 13:15 06/21/25 06/21/25 06/21/25 06:59 14:59 22:59 Intake Total 450 / 450 371 / 821 Output Total 600 / 600 Balance -150 / -150 371 / 221 Weight last 48 hrs Weight 106 kg Weight 99.79 kg Physical Exam Const: COMMON NORMALS: no acute distress and patient oriented x3 HENMT: COMMON NORMALS: normocephalic HEAD & SCALP: normocephalic Eye: OTHER: Conjunctival pallor Neck/C-Spine: COMMON NORMALS: no JVD Resp: COMMON NORMALS: normal respiratory effort, No retractions, No use of accessory muscles and clear to auscultation bilaterally AUSCULTATION: clear to auscultation bilaterally Cardio: COMMON NORMALS: regular rate, regular rhythm, S1 normal heart sound present and S2 normal heart sound present RATE: tachycardic RHYTHM: abnormal rhythm irregularly irregular HEART SOUNDS: S1 normal heart sound present and S2 normal heart sound present GI: COMMON NORMALS: Normal to inspection, nondistended, normoactive bowel sounds present, Soft to palpation and non-tender Extremity: COMMON NORMALS: no calf tenderness and no pedal edema Neuro: COMMON NORMALS: patient oriented x3, CN's II-XII intact bilaterally and moves all extremities Psych: COMMON NORMALS: mental status grossly normal Urinary Catheter Management: Bray: Cath Placed During This Visit: yes Urinary Catheter Date of Insertion: 06/21/25 Urinary Catheter Time of Insertion: 13:20 Data 06/21/25 15:25 06/21/25 15:25 A&P Assessment and plan 1. GI bleed: 2. Shock: Plan: Gastrointestinal bleed -On Eliquis CT scan abdomen pelvis CT/CT abdomen pelvis w con* [id number] IMPRESSION: No acute subdiaphragmatic pathology. - With shock Blood - N.p.o. - IV fluids - Status post 1 unit PRBC will give another unit PRBC - 1 unit FFP - Andexxa, low-dose - Monitor hemodynamic closely - Order placed for PICC line - General Surgery on consult - Plan for EGD and colonoscopy PDMP PDMP Reviewed: Not Reviewed Attestations Medical Necessity Statement*: Patient requires hospitalization, inpatient, greater than 2 midnights for GI bleed, shock Diagnoses GI bleed K92.2 Shock R57.9
--- NOTE | 2025-06-21 17:35 | XRR_ITS ---
PROCEDURE INFORMATION: Exam: XR Chest Exam date and time: 06/21/2025 5:40 PM Age: 80 years old Clinical indication: Device placement; Picc; Additional info: Picc line placement TECHNIQUE: Imaging protocol: Radiologic exam of the chest. Views: 1 view. COMPARISON: CR (CHEST, ) 06/21/2025 6:33 AM FINDINGS: Lungs: A few minute calcified lung nodules are seen incidentally. No consolidation. Pleural spaces: Unremarkable. No pleural effusion. No pneumothorax. Heart/Mediastinum: Mild cardiomegaly. Right PICC in place, tip overlies lower SVC. Bones/joints: Unremarkable. XR/XR chest 1V portable [id number] IMPRESSION: 1. No acute findings. 2. Right PICC in place, tip overlies lower SVC.
--- NOTE | 2025-06-21 18:15 | PC.NURSE ---
Blood transfusion was started at 1808 but computer did not save time. Had to re scan.
[2025-06-21] MEDS: ferric gluconate 125 MG in sodium chloride 0.9% (100 ml) 100 ML 110 MG IV (18:17)
[2025-06-21 18:40] LABS: Troponin 5 2HR 10.71 ng/L (0-10); Troponin 5 2HR Delta -1.29 ABS# (0-10)
[2025-06-21] MEDS: pantoprazole 40 mg SDV IVP (20:54)
--- NOTE | 2025-06-21 20:59 | ECG_ITS ---
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 Measurements Intervals [place] Rate: 77 P: 38 OR: 194 QRS: 26 QRSD: 117 T: 29 QT: 403 QTc: 459 Interpretive Statements SINUS RHYTHM MODERATE INTRAVENTRICULAR CONDUCTION DELAY [110+ ms QRS DURATION] Compared to ECG 06/21/2025 16:55:34 Intraventricular conduction delay now present Electronically Signed On 06-21-2025 22:55:47 CDT by Basim Fry M.D. [id number] [id number]
[2025-06-21 21:52] LABS: Hemoglobin 6.80 g/dL (11.27-16.99)
[2025-06-21 22:09] LABS: Troponin 5 6HR 12.73 ng/L (0-10); Troponin 5 6HR Delta 0.73 ng/L (0-12)
[2025-06-21 22:10] LABS: Lactate (Lactic Acid level) 1.5 mmol/L (0.5-2.2)
[2025-06-21 22:14] LABS: Hematocrit 20.4 % (36-47)
--- NOTE | 2025-06-21 22:27 | PC.NURSE ---
Addendum entered by NINO Mars 06/21/25 23:13: notified of stat H&H redraw results Hgb 7.0, HCT 21.5. Provider gave no new orders and said to monitor patient. Provider notified patient continues to have black tarry stool with fluctuating H&H since this morning. Original Note: notified of patients critical HCT of 20.4 and downward trending HGB after patient received 2 units of RBC and 1 FFF. Provider gave orders to discontinue D5 0.45NS + 20mEq @100/hr to NS at 75/hr as well as repeat stat H&H. Orders placed. See MAR
[2025-06-21 23:03] LABS: Hematocrit 21.5 % (36-47); Hemoglobin 7.00 g/dL (11.27-16.99)
[2025-06-22] VITALS (40 sets, daily range): BP systolic 80–137; BP diastolic 41–63; PULSE 62–124; RESP 0–34; TEMP 36.5–37.2; O2SAT 89–99
[2025-06-22 00:41] LABS: Hematocrit 21.1 % (36-47); Hemoglobin 7.10 g/dL (11.27-16.99)
[2025-06-22 00:59] LABS: Lactate (Lactic Acid level) 1.4 mmol/L (0.5-2.2)
[2025-06-22 04:51] LABS: Hematocrit 21.2 % (36-47); Hemoglobin 7.00 g/dL (11.27-16.99); Mean Corpuscular HGB Conc 33.0 g/dL (30-55); Mean Corpuscular Hemoglobin 30.4 pg (27-33); Mean Corpuscular Volume 92.2 fl (85-98); Nucleated Red Blood Cells % 0 %; Platelet Count 130 10^3/cmm (157-399); Red Blood Count 2.30 10^6/uL (3.85-5.65); White Blood Count 7.06 10^3/uL (3.29-11.43)
[2025-06-22 05:16] LABS: Alanine Aminotransferase 7 U/L (0-33); Albumin Level 2.7 g/dL (3.5-5.2); Alkaline Phosphatase 36 U/L (35-105); Anion Gap 11.8 (5-19); Aspartate Amino Transferase 13 U/L (0-32); Blood Urea Nitrogen 17 mg/dL (8-23); Calcium 8.1 mg/dL (8.5-10.5); Carbon Dioxide 20 mmol/L (22-29); Chloride 116 mmol/L (98-107); Creatinine Clr Calc Pharmacy 65.4910; Globulin 1.3 g/dL (1.3-4.6); Glucose 94 mg/dL (65-115); Osmolality Calculated 299 mOsm/kg (285-295); Potassium 3.8 mmol/L (3.5-5.1); Sodium 144 mmol/L (136-145); Total Protein 4.0 g/dL (6.6-8.7)
[2025-06-22 05:27] LABS: Lactate (Lactic Acid level) 1.3 mmol/L (0.5-2.2)
[2025-06-22] MEDS: pantoprazole 40 mg SDV IVP (05:46)
[2025-06-22] MEDS: sucralfate 1 gm/10 mL Oral Liq UDC PO (06:21)
--- NOTE | 2025-06-22 06:30 | PC.NURSE ---
Patient had 3 bowel movements this shift. All were dark and tarry, but the third bowel movement also had what appeared to be bright red blood in it as well. Patient was experiencing more abdominal pain at that time as well. Pressures soft overnight, but did not require any pressors to be started. Granddaughter at bedside.
[2025-06-22 08:15] LABS: Hemoglobin 6.70 g/dL (11.27-16.99)
[2025-06-22 08:20] LABS: Hematocrit 20.5 % (36-47)
[2025-06-22 08:33] LABS: Hemoglobin 6.60 g/dL (11.27-16.99); Mean Corpuscular HGB Conc 32.4 g/dL (30-55); Mean Corpuscular Hemoglobin 29.5 pg (27-33); Mean Corpuscular Volume 91.1 fl (85-98); Nucleated Red Blood Cells % 0 %; Platelet Count 128 10^3/cmm (157-399); Red Blood Count 2.24 10^6/uL (3.85-5.65); White Blood Count 6.30 10^3/uL (3.29-11.43)
[2025-06-22 08:39] LABS: Lactate (Lactic Acid level) 1.3 mmol/L (0.5-2.2)
[2025-06-22 09:09] LABS: Hematocrit 20.4 % (36-47)
[2025-06-22 10:05] LABS: INR 1.12 (0.8-1.2); Prothrombin Time 15.20 SECONDS (12.1-14.9)
--- NOTE | 2025-06-22 10:21 | PM.PN ---
Subjective Subjective: Still with some black stools now Vitals/I&O/Wt Last Vital Signs Temp 98.1 F 06/22/25 10:07 Pulse 77 06/22/25 10:07 Resp 18 06/22/25 10:07 BP 109/57 06/22/25 10:07 Pulse Ox 97 06/22/25 10:07 O2 Del Method Room Air 06/22/25 09:46 06/21/25 06/22/25 06/22/25 22:59 06:59 14:59 Intake Total 4045.667 / 4495.667 341 / 341 Output Total 1600 / 2200 Balance 4045.667 / 3895.667 -1600 / 2295.667 341 / 341 Weight last 48 hrs Weight 233 lb 3.985 oz Weight 233 lb 11.04 oz Weight 220 lb Physical Exam Narrative: Patient is a well developed well nourished and in NAD and is afebrile with vitals stable and is answering questions appropriately with a normal affect and is alert and oriented x3 HEENT: normocephalic with normal external ears and nonicteric, oral mucosa moist and dentition normal for age, trachea midline with no large masses visualized Heart: RRR, no gallops murmurs or rubs, normal PMI with no thrills Lungs: normal excursions, no loud audible wheezing, no subcutaneous emphysema Abdomen: nondistended, no gross hepatosplenomegaly, no masses, no rigidity or rebound, no loud borborygmi Neuro: nonfocal, SPENCER, grossly normal sensation Musculoskeletal: good muscle tone, no fasciculations, normal gait Skin: pink warm and dry with no rashes or ecchymosis Vascular: good radial pulses, no ulceration, less than 2 second capillary refill in hand : deferred Urinary Catheter Management: Bray: Cath Placed During This Visit: yes Reason for Continuing Indwelling Catheter: Accurate Measurement of Urinary Output in Critically Ill Patients Urinary Catheter Date of Insertion: 06/21/25 Urinary Catheter Time of Insertion: 13:20 Data 06/22/25 08:00 06/22/25 03:55 A&P Assessment and plan 1. GI bleed: Plan: Patient continues to require blood transfusion after andexat was given to reverse eliquis. Her stools are now black and likely from upper GI tract. GI lab is not available until after noon time and I will need to leave by then. There is no back up coverage so Dr Burnett with consent of patient and family has agreed to transfer patient preferably to [facility] in [place] that family requested. PDMP PDMP Reviewed: Not Reviewed Attestations Medical Necessity Statement*: Continues to have GI bleeding Coding Level of Care Code Acute Code for Chg Fwd Diagnoses GI bleed K92.2
[2025-06-22] MEDS: hum prothrombin cplx(pcc)4fact 1,000 UNIT, hum prothrombin cplx(pcc)4fact 500 UNIT in e... IV (10:33)
--- NOTE | 2025-06-22 11:57 | PC.NURSE ---
Report was given to Nicole in [facility] 6A [id number]. Phone number is [phone].
--- NOTE | 2025-06-22 12:01 | PC.NURSE ---
Patient was picked up at 1159 by [facility]. Blood transfusion was sent with [facility].
--- NOTE | 2025-06-22 12:12 | P.PN_ITS ---
Subjective 2 Subjective: - Patient was seen this morning - She is alert oriented x 3, following a ll commands, - She complains of abdominal pain, she h as had several black tarry movements throughout the night - She has had episodes of hypotension, t achycardia -Discussed with family that she is alrea dy received 2 units of blood, -I had a detailed discussion with the pa estela and family yesterday about the risks and benefits of a andexxa, given her history of CVA, history of DVT, however yesterday at about 2 PM she developed hemodynamic compromise, tachycardia, abdominal pain. Discussed the risks and benefits of Andexxa, risk of hypercoagulable events, patient and family voiced understanding, all question answered, agreed to proceed -No hypercoagulable events noted, no tyrell f pain, calf swelling, no shortness of breath, no hemoptysis, no strokelike symptoms, facial droop no slurring words -Even after receiving andexaa, she kaylynn nued to have black tarry movements throughout the night - Currently she is normotensive, sinus r hythm, on room air - She had a black tarry movement a few m inutes ago, - Hemoglobin down to 6.6, order placed f or 2 days of blood, 1 unit FFP, 1 unit platelet as platelet count is dropped to 128 - Discussed with patient plans on urgent EGD -Initially unresponsive during EGD and c olonoscopy tomorrow, however given her persistent bleeding or black tarry stools, would recommend for urgent EGD - She voices understanding, all question s answered, agreed to proceed - Reexamine, with general surgery at bed side - General Surgery agrees to proceed with EGD at maybe noon time however general surgery cannot proceed with procedure as he has had a family emergency, and he will have to leave the hospital urgently - is seeing if he can find cover age for the EGD to be done here at [facility] urgently - I was able to step outside the room, a nd speak to , who is not on-call for general surgery service, discussed the situation, the need for urgent EGD, with patient with GI bleed, Dr. Goldberg family emergency and he will have to leave the hospital. Dr. Dimas has informed me that unfortunately he cannot perform an EGD due to his schedule, and that he is not on-call, and recommended transfer to tertiary level center - was still discussing with the p atient's family options are available, discussed with and family that we do not have surgical services available here at [facility], -Given patient's persistent anemia noted at 6.6, persistent active GI bleed with black tarry stools, patient's condition is becoming critical and she is going to need urgent GI scoping/general surgery/GI/IR evaluation - Certainly this is a difficult situatio n, we do not have any general surgery coverage here at [facility], Dr. More has to immediately leave, the only option that we have, is to transfer her to a tertiary level center that we will have general surgery/GI but also IR - I discussed this with the patient, the family, with present the risks and benefits of transfer, they voiced understanding, all questions answered, shared decision making, agreed to proceed -Patient's family would prefer [facility] -Spoke to [facility] in [place], spoke to the color dipper, has been accepted -[facility] Cutter at [facility] would like us to try Kcentra, order placed for Kcentra, - Patient is receiving 2 units of blood, 1 FFP, and is receiving Kcentra -Discussed with family that she has been accepted at [facility], spoke to the color dipper, they want a trial of Kcentra -Discussed the risk and benefits of Kcen tra, risk including but not limited to hypercoagulability, they voiced understanding, all questions answered, agreed to proceed -Patient reexamined, normotensive, heart rates in the 90s, normal sinus rhythm, no room air, discussed that she has been accepted, [facility], will Air-Evac to [place] -Patient was transferred to [facility] via air EVAC Vitals/I&O/Wt Last Vital Signs Temp 97.7 F 06/22/25 11:21 Pulse 92 06/22/25 11:21 Resp 18 06/22/25 11:21 BP 124/61 06/22/25 11:21 Pulse Ox 96 06/22/25 11:21 O2 Del Method Room Air 06/22/25 09:46 06/21/25 06/22/2525 22:59 06:59 14:59 Intake Total 4045.667 / 4495.667 914 / 914 Output Total 1600 / 2200 Balance 4045.667 / 3895.667 -1600 / 2295.667 914 / 914 Weight last 48 hrs Weight 105.8 kg Weight 106 kg Weight 99.79 kg Physical Exam 2 Const: COMMON NORMALS: no acute distress and patient oriented x3 OTHER: Conjunctival monitor Resp: COMMON NORMALS: normal respiratory effort, No retractions, No use of accessory muscles and clear to auscultation bilaterally AUSCULTATION: clear to auscultation bilaterally Cardio: COMMON NORMALS: regular rate, regular rhythm, S1 normal heart sound present and S2 normal heart sound present RATE: regular rate RHYTHM: r egular rhythm HEART SOUNDS: S1 normal heart sound present and S2 normal heart sound present GI: COMMON NORMALS: Normal to inspection, nondistended, normoactive bowel sounds present and non-tender Extremity: COMMON NORMALS: no pedal edema Neuro: COMMON NORMALS: patient oriented x3 Psych: COMMON NORMALS: mental status grossly normal Urinary Catheter Management: Bray: Cath Placed During This Visit: yes Reason for Continuing Indwelling Catheter: Accurate Measurement of Urinary Output in Critically Ill Patients Urinary Catheter Date of Insertion: 06/21/25 Urinary Catheter Time of Insertion: 13:20 Data 06/22/25 08:00 06/22/25 03:55 A&P Assessment and plan 1. GI bleed: 2. Shock: Plan: Gastrointestinal bleed -On Eliquis, last dose was 6 PM 06/21/[address] scan abdomen pelvis CT/CT abdomen pelvis w con* [id number] IMPRESSION: No acute subdiaphragmatic pathology. - With shock Blood - N.p.o. - IV fluids - Status post units PRBC, will give another 2 units. BC - Status post 1 unit FFP, will give another dose of FFP - Status post Andexxa loading dose/maintenance dose -1 dose of Kcentra - Monitor hemodynamic closely - PICC line in place - Transfer to tertiary level center for the need for GI evaluation/neurosurgery/IR PDMP PDMP Reviewed: Not Reviewed Attestations 2 Medical Necessity Statement*: Patient requires hospitalization to [facility] for GI bleed on Eliquis Diagnoses GI bleed K92.2 Shock R57.9
--- NOTE | 2025-06-22 12:13 | P.TS_ITS ---
Transfer Summary Providers Date of Admission: 06/21/25 08:29 Date of Discharge/Transfer: 06/22/25 Attending Provider at Admission: Serg Burnett MD Attending Provider at Transfer: Serg Burnett MD Primary Care Provider: TIAGO Schmidt Transfer Plans: Anticipated date of transfer: 06/22/25 . Diagnoses at Discharge Discharge Diagnosis 1. GI bleed: Reason for Visit Reason for Visit Rectal Bleeding Hospital Course Hospital Course Georgina York is a 80 year old female with a past medical history of atrial fibrillation, DVT on Eliquis, hypothyroidism, who presents [facility] due to complaints of black tarry stools. Patient tells me that she took her Eliquis at about 6 PM last night, she did have an upset stomach, some epigastric discomfort, she denies a prior history of GI bleeds, no history of anemia, she reports that this morning she had 3 episodes of black tarry bowel movements associated lightheadedness dizziness and weakness, no nausea, no vomiting, no alcoholism, no drug use, no smoking. In the emergency room she was found to be orthostatic, hemoglobin down to 6.8, was given 1 unit of PRBC. Patient and son at bedside, discussed that we will give her 1 unit of blood and monitor hemodynamics closely in the ICU, TXA, will keep her n.p.o., general surgery is considering doing a EGD colonoscopy potentially tomorrow based on the clinical progress so far hemodynamically her blood pressures are reasonable, she is not tachycardic, she is on room air she is alert oriented, plan is to continue to monitor and she does not have any active black tarry stools currently. Patient was reexamined in the ICU, with general surgery with the patient's family, discussion was made about Andexxa use, at this time roughly at noon time she was alert oriented x 3, follow commands normotensive, room air, no tachycardia no black tarry bowel movements she is receiving her first unit of blood, no abdominal pain, her lactic acid this morning was 3.3, trended down to 2.0. Discussion with general surgery is states that as she is hemodynamically stable, will hold off on a andexxa use, monitor hemoglobin continue medically managed, plan for EGD and and colonoscopy tomorrow major clinical progress, monitor closely keep her in bed, monitor her hemoglobin, monitor lactic acid, transfuse blood products further if needed based on clinical progress. However if she does become hemodynamically unstable, have active black tarry stools, we will go ahead and proceed with Andexxa use, as it has been about 12 hours since she is taking her last dose of 5 mg of Eliquis. She is also worried about her increased risk of a stroke and DVT, discussed risks and benefits of holding anticoagulant therapy, she voiced understanding, all questions answered, agreed to proceed. Earlier this afternoon at roughly 3 PM, Georgina started to complain of abdominal pain, as if she was can have a bowel movement, heart rate increased to 130s, became hypotensive, MAP less than 65, with tachypnea, tachycardia. Order placed for 1 unit of blood, a liter bolus normal saline. discussed with general surgery Andexxa use with her hemodynamic instability, her lactic acid has trended up to 2.7, general surgery and I agree with proceeding with andexxa use given patient's developing hemodynamic instability, hemoglobin down to 7.5 after unit of blood, abdominal pain, complaints of feeling like she is going to have a bowel movement, concerns for life-threaten ing GI bleed. I also saw Georgina, she is tachycardic, tachypneic, feeling unwell, complaining of abdominal pain, feeling as if she is going to have a bowel movement, abdomen soft, slightly distended, no guarding, no rebound, no. Her MAP is less than 65 she is receiving fluid therapy, order placed for 1 unit of blood, 1 unit FFP, andexxa. Discussed with patient the risks and benefits of andexxa, significant risk including but not limited to hypercoagulable vents such as DVT/PE/CVA/CAD she voiced understanding, all questions answered, shared decision making, agreed to proceed. Discussed with patient that plan is to continue to monitor hemodynamics monitor hemoglobin trend, if she responds to these interventions we can still proceed with EGD and colonoscopy tomorrow morning. However if she continues to have hemodynamic instability, pain, downward trending hemoglobin, then we will go ahead and proceed with EGD more urgently. She received low-dose Andexxa, given that it is been more than 12 hours since her last Eliquis dose, she received bolus and maintenance. - Patient was seen this morning at 06/22/2025 - She is alert oriented x 3, following all commands, - She complains of abdominal pain, she has had several black tarry movements throughout the night - She has had episodes of hypotension, tachycardia throughout the night, which improved with fluid therapy -Discussed with family that she is already received 2 units of blood, hemoglobin down to 6.6 -I had a detailed discussion with the patient and family yesterday about the risks and benefits of a andexxa, given her history of CVA, history of DVT, however yesterday at about 2 PM she developed hemodynamic compromise, tachycardia, abdominal pain. Discussed the risks and benefits of Andexxa, risk of hypercoagulable events, patient and family voiced understanding, all question answered, agreed to proceed -No hypercoagulable events noted, no calf pain, calf swelling, no shortness of breath, no hemoptysis, no strokelike symptoms, no facial droop, no slurring words, no chest pain, -Even after receiving andexaa, she continued to have black tarry movements throughout the night - Currently she is normotensive, sinus rhythm, on room air - She had a black tarry movement a few minutes ago, - Hemoglobin down to 6.6, order placed for 2 days of blood, 1 unit FFP, 1 unit platelet as platelet count is dropped to 128 - Discussed with patient plans on urgent EGD -Initially unresponsive during EGD and colonoscopy tomorrow, however given her persistent bleeding or black tarry stools, would recommend for urgent EGD - She voices understanding, all questions answered, agreed to proceed - Reexamine, with general surgery at bedside - General Surgery agrees to proceed with EGD at maybe noon time however general surgery cannot personally proceed with procedure as he has had a family emergency, and he will have to leave the hospital urgently right now - is seeing if he can find coverage for the EGD to be done here at [facility] urgently - I was able to step outside the room, and speak to , who is not on-call for general surgery service, discussed the situation, the need for urgent EGD, with patient with GI bleed, Dr. Goldberg family emergency and he will have to leave the hospital. Dr. Dimas has informed me that unfortunately he cannot perform an EGD due to his schedule, and that he is not on-call, and recommended transfer to tertiary level center -I was informed by administration, that we do not have any general surgery coverage at [facility], - was still discussing with the patient's family options that are available, discussed with and family that we do not have surgical services available here at [facility], -Given patient's persistent anemia noted at 6.6, persistent active GI bleed with black tarry stools, patient's condition is becoming critical and she is going to need urgent GI scoping/general surgery/GI/IR evaluation - Certainly this is a difficult situation, we do not have any general surgery coverage here at [facility], Dr. Goldberg has to immediately leave, the only option that we have, is to transfer her to a tertiary level center that we will have general surgery/GI but also IR - I discussed this with the patient, the family, with present the risks and benefits of transfer, they voiced understanding, all questions answered, shared decision making, agreed to proceed -Patient's family would prefer [facility] -Spoke to [facility] in [place], spoke to the clamper, has been accepted -[facility] [place] Sawyer at [facility] would like us to try Kcentra, order placed for Kcentra, - Patient is receiving 2 units of blood, 1 FFP, and is receiving Kcentra -Discussed with family that she has been accepted at [facility], spoke to the clamper, they want a trial of Kcentra -Discussed the risk and benefits of Kcentra, risk including but not limited to hypercoagulability, they voiced understanding, all questions answered, agreed to proceed -Patient reexamined, normotensive, heart rates in the 90s, normal sinus rhythm, no room air, discussed that she has been accepted, [facility], will Air-Evac to [place] -Patient was transferred to [facility] via air EVAC Physical Exam Const: COMMON NORMALS: no acute distress and patient oriented x3 Resp: COMMON NORMALS: normal respiratory effort, No retractions, No use of accessory muscles and clear to auscultation bilaterally AUSCULTATION: clear to auscultation bilaterally Cardio: COMMON NORMALS: regular rate, regular rhythm, S1 normal heart sound present and S2 normal heart sound present RATE: regular rate RHYTHM: regular rhythm HEART SOUNDS: S1 normal heart sound present and S2 normal heart sound present GI: COMMON NORMALS: Normal to inspection, nondistended, normoactive bowel sounds present and non-tender Extremity: COMMON NORMALS: no pedal edema Neuro: COMMON NORMALS: patient oriented x3 Psych: COMMON NORMALS: mental status grossly normal Urinary Catheter Management: Bray: Cath Placed During This Visit: yes Reason for Continuing Indwelling Catheter: Accurate Measurement of Urinary Output in Critically Ill Patients Urinary Catheter Date of Insertion: 06/21/25 Urinary Catheter Time of Insertion: 13:20 TS Data Studies Completed and Pending Pending at discharge Category Date Time Status ABO/Rh Type Routine Lab 06/21/25 07:07 Results Complete Crossmatch Routine Lab 06/21/25 07:07 Results FFP [Frozen Plasma FZ <24 1st Cont] Routine Lab 06/21/25 07:07 Results Leukocyte Reduced RBC Stat Lab 06/21/25 07:07 Results Platelets Leuko-Reduced Stat Lab 06/22/25 08:21 Results Type and Screen Routine Lab 06/21/25 07:07 Results Completed Studies During Hospitalization Category Date Time Status CT abdomen pelvis w con* [id number] Stat Cat Scan 06/21/25 06:53 Completed XR chest 1V portable [id number] Stat Exams 06/21/25 06:32 Completed XR chest 1V portable [id number] Stat Exams 06/21/25 17:35 [place] [id number] Routine Ultrasound 06/21/25 09:14 Completed Laboratory Last Values WBC 6.30 10^3/uL (3.29-11.43) 06/22/25 08:00 RBC 2.24 10^6/uL (3.85-5.65) L 06/22/25 08:00 Hgb 6.60 g/dL (11.27-16.99) L 06/22/25 08:00 Hgb 6.70 g/dL (11.27-16.99) L 06/22/25 08:00 Hct 20.4 % (36-47) L* 06/22/25 08:00 Hct 20.5 % (36-47) L* 06/22/25 08:00 MCV 91.1 fl (85-98) 06/22/25 08:00 MCH 29.5 pg (27-33) 06/22/25 08:00 MCHC 32.4 g/dL (30-55) 06/22/25 08:00 RDW 16.0 % (12.1-15.1) H 06/22/25 08:00 Plt Count 128 10^3/cmm (157-399) L 06/22/25 08:00 MPV 9.8 fL (7.4-10.4) 06/22/25 08:00 Neut % (Auto) 59.4 % 06/22/25 08:00 Lymph % (Auto) 27.9 % 06/22/25 08:00 Griggs % (Auto) 9.8 % 06/22/25 08:00 Eos % (Auto) 2.1 % 06/22/25 08:00 Baso % (Auto) 0.5 % 06/22/25 08:00 Reticulocyte % (Auto) 2.5 % (0.5-2.0) H 06/21/25 10:01 Neut # (Auto) 3.74 10^3/uL (1.8-7.7) 06/22/25 08:00 Lymph # (Auto) 1.8 10^3/uL (0.8-4.8) 06/22/25 08:00 [place]gs # (Auto) 0.6 10^3/uL (0.2-0.9) 06/22/25 08:00 Eos # (Auto) 0.1 10^3/uL (0.0-0.8) 06/22/25 08:00 Baso # (Auto) 0.0 10^3/uL (0.0-0.1) 06/22/25 08:00 Nucleated RBC % (auto) 0 % 06/22/25 08:00 Nucleated RBCs # 0.0 /100WBC 06/22/25 08:00 PT 15.20 SECONDS (12.1-14.9) H 06/22/25 09:45 INR 1.12 (0.8-1.2) 06/22/25 09:45 APTT 20.1 SECONDS (23.9-36.7) L 06/21/25 06:30 Sodium 144 mmol/L (136-145) 06/22/25 03:55 Potassium 3.8 mmol/L (3.5-5.1) 06/22/25 03:55 Chloride 116 mmol/L (98-107) H 06/22/25 03:55 Carbon Dioxide 20 mmol/L (22-29) L 06/22/25 03:55 Anion Gap 11.8 (5-19) 06/22/25 03:55 BUN 17 mg/dL (8-23) 06/22/25 03:55 Creatinine 0.6 mg/dL (0.5-0.9) 06/22/25 03:55 GFR Calculation Not Reportable 06/22/25 03:55 Glucose 94 mg/dL (65-115) 06/22/25 03:55 Estimat Average Glucose 105 06/21/25 10:01 Hemoglobin A1c 5.3 % (4.0-6.0) 06/21/25 10:01 Calculated Osmolality 299 mOsm/kg (285-295) H 06/22/25 03:55 Lactic Acid 3.3 mmol/L (0.5-2.2) H 06/21/25 08:00 Lactic Acid (Sepsis) 2.0 mmol/L (0.5-2.2) 06/21/25 10:01 Lactate 1.3 mmol/L (0.5-2.2) 06/22/25 08:00 Calcium 8.1 mg/dL (8.5-10.5) L 06/22/25 03:55 Iron 59 ug/dL (37-145) 06/21/25 10:01 TIBC 253 mcg/dl 06/21/25 10:01 % Saturation 23.3 % (20-50) 06/21/25 10:01 Unsat Iron Binding 194 ug/dL (112-347) 06/21/25 10:01 Ferritin 21 ng/mL (15-150) 06/21/25 10:01 Total Bilirubin 0.4 mg/dL (0.15-1.2) 06/22/25 03:55 AST 13 U/L (0-32) 06/22/25 03:55 ALT 7 U/L (0-33) 06/22/25 03:55 Alkaline Phosphatase 36 U/L (35-105) 06/22/25 03:55 Troponin T Baseline 12 ng/L (0-10) H 06/21/25 15:25 Troponin T 120 Minute 10.71 ng/L (0-10) H 06/21/25 18:08 Delta Troponin T -1.29 ABS# (0-10) L 06/21/25 18:08 Troponin T Hi Sens 6Hr 12.73 ng/L (0-10) H 06/21/25 21:10 Troponin T Hi Sens 6Hr Delta 0.73 ng/L (0-12) 06/21/25 21:10 Total Protein 4.0 g/dL (6.6-8.7) L 06/22/25 03:55 Albumin 2.7 g/dL (3.5-5.2) L 06/22/25 03:55 Globulin 1.3 g/dL (1.3-4.6) 06/22/25 03:55 Triglycerides 127 mg/dL (0-150) 06/21/25 10:01 Cholesterol 105 mg/dL (0-200) 06/21/25 10:01 LDL Cholesterol, Calc 48 mg/dL (50-129) L 06/21/25 10:01 HDL Cholesterol 32 mg/dL (60-100) L 06/21/25 10:01 LDL/HDL Ratio 1.50 RATIO (0.00-3.22) 06/21/25 10:01 Cholesterol/HDL Ratio 3.28 mg/dL (0.0-4.40) 06/21/25 10:01 TSH 0.25 uIU/mL (0.27-4.20) L 06/21/25 10:01 Urine Color Yellow (Yellow) 06/21/25 12:54 Urine Appearance Clear (CLEAR) 06/21/25 12:54 Urine pH 6.5 (5-7) 06/21/25 12:54 Ur Specific [place] 1.052 (1.005-1.030) H 06/21/25 12:54 Urine Protein Negative (Negative) 06/21/25 12:54 Urine Glucose (UA) Negative (Normal) 06/21/25 12:54 Urine Ketones Negative (Negative) 06/21/25 12:54 Urine Blood Non-haemolysed trace (Negative) 06/21/25 12:54 Urine Nitrate Negative (Negative) 06/21/25 12:54 Urine Bilirubin Negative (Negative) 06/21/25 12:54 Urine Urobilinogen 0.2 mg/dL (Negative) 06/21/25 12:54 Ur Leukocyte Esterase Negative (Negative) 06/21/25 12:54 Urine RBC 3-5 /hpf (0-2) 06/21/25 12:54 Urine WBC 0-5 /hpf (0-5) 06/21/25 12:54 Ur Squamous Epith Cells 0-5 /hpf (0-5) 06/21/25 12:54 Amorphous Sediment Not Reportable 06/21/25 12:54 Urine Bacteria None seen /hpf (NONE) 06/21/25 12:54 Hyaline Casts 0.81 /lpf 06/21/25 12:54 Blood Type A Negative 06/21/25 07:07 Rho(D) Type Rh negative 06/21/25 07:07 Antibody Screen Negative 06/21/25 07:07 Crossmatch See Detail 06/21/25 07:07 Radiology Impressions Abdomen/Pelvis CT 06/21/25 06:53 IMPRESSION: No acute subdiaphragmatic pathology. Chest X-Ray 06/21/25 17:35 IMPRESSION: 1. No acute findings. 2. Right PICC in place, tip overlies lower SVC. Recent Clincial Data Last Vital Signs Temp 97.7 F 06/22/25 11:21 Pulse 92 06/22/25 11:21 Resp 18 06/22/25 11:21 BP 124/61 06/22/25 11:21 Pulse Ox 96 06/22/25 11:21 O2 Del Method Room Air 06/22/25 09:46 Vital Signs Temp Pulse Resp BP Pulse Ox O2 Del Method O2 Del Method 06/22/25 11:21 97.7 F 92 18 124/61 96 06/22/25 11:15 97.7 F 92 18 124/61 95 06/22/25 10:07 98.1 F 77 18 109/57 97 06/22/25 09:51 97.7 F 72 19 H 115/57 97 06/22/25 09:48 97.7 F 68 20 H 115/57 97 06/22/25 09:46 100 97 Room Air 06/22/25 08:00 62 19 H 103/52 98 Room Air 06/22/25 07:45 74 0 L 101/54 99 06/22/25 07:30 71 18 101/63 06/22/25 07:15 74 14 118/51 06/22/25 07:00 97.7 F 69 25 H 118/54 98 Room Air 06/22/25 06:45 63 34 H 114/56 93 06/22/25 06:30 71 19 H 118/60 92 06/22/25 06:15 71 24 H 109/60 94 06/22/25 06:00 65 18 127/60 06/22/25 05:45 71 0 L 115/58 90 06/22/25 05:30 75 8 L 122/63 94 06/22/25 05:15 74 8 L 94/47 97 06/22/25 05:00 72 0 L 106/44 06/22/25 04:45 69 14 80/41 95 06/22/25 04:30 66 17 92/46 94 06/22/25 04:15 99.0 F 66 7 L 96/54 93 06/22/25 04:00 104 H 2 L 90/54 94 06/22/25 03:45 119 H 2 L 91/44 06/22/25 03:30 121 H 0 L 94/53 06/22/25 03:15 120 H 0 L 111/57 06/22/25 03:00 121 H 7 L 110/60 06/22/25 02:45 124 H 0 L 86/59 92 06/22/25 02:30 120 H 20 H 99/53 89 L 06/22/25 02:15 120 H 22 H 107/63 92 06/22/25 02:13 120 H 20 H 107/63 92 06/22/25 02:00 98.2 F 06/22/25 01:45 77 22 H 117/52 96 06/22/25 01:30 73 17 137/55 93 06/22/25 01:15 70 21 H 118/62 93 06/22/25 01:00 73 15 116/55 94 06/22/25 00:45 69 26 H 126/53 93 06/22/25 00:30 76 17 121/52 97 06/22/25 00:15 75 18 126/45 95 Intake & Output/Weight 06/20/25 06/21/25 06/22/25 06/23/25 06:59 06:59 06:59 06:59 Intake Total 4495.667 / 4495.667 914 / 914 Output Total 2200 / 2200 Balance 2295.667 / 2295.667 914 / 914 Weight 99.79 kg 105.8 kg Vitals Last Vital Signs Temp 97.7 F 06/22/25 11:21 Pulse 92 06/22/25 11:21 Resp 18 06/22/25 11:21 BP 124/61 06/22/25 11:21 Pulse Ox 96 06/22/25 11:21 O2 Del Method Room Air 06/22/25 09:46 TS Medications Medications Discontinued Medications Acetaminophen (Acetaminophen 325 Mg Tablet) 650 mg PO Q6H PRN PRN Reason: Mild/Mod Pain Or Temp >/= 101 Tranexamic Acid (Tranexamic Acid) 1,000 mg in 100 mls @ 600 mls/hr IV ONCE ONE Stop: 06/21/25 07:57 Last Infusion: 06/21/25 08:53 Dose: Infused Sodium Chloride (Sodium Chloride 0.9%) 1,000 mls @ 999 mls/hr IV .Q1H1M ONE Stop: 06/21/25 08:51 Last Infusion: 06/21/25 21:00 Dose: Infused Potassium Chloride/Dextrose/Sod Cl (D5-Ns 0.45% + Kcl 20 Meq) 20 meq in 1,000 mls @ 100 mls/hr IV .Q10H SUNG Last Infusion: 06/21/25 22:35 Dose: 0 mls/hr Norepinephrine Bitartrate (Levophed) 4 mg in 250 mls @ 0 mls/hr IV .Q0M SUNG; Protocol Sodium Chloride (Sodium Chloride 0.9%) 1,000 mls @ 999 mls/hr IV .Q1H1M ONE Stop: 06/21/25 15:59 Last Infusion: 06/21/25 21:00 Dose: Infused Factor Xa(Recombinant) Inactiv -zhzo 400 mg/ N/A/ IV Miscellaneous Supplies 40 mls @ 180 mls/hr IV .Q14M ONE Stop: 06/21/25 15:12 Last Infusion: 06/21/25 16:17 Dose: Infused Factor Xa(Recombinant) Inactiv -zhzo 480 mg/ N/A/ IV Miscellaneous Supplies 48 mls @ 24 mls/hr IV .Q2H ONE Stop: 06/21/25 16:58 Last Infusion: 06/21/25 20:59 Dose: Infused Ferric Sodium Gluconate 125 mg (/ Sodium Chloride) 110 mls @ 110 mls/hr IV ONCE ONE Stop: 06/21/25 18:11 Last Infusion: 06/21/25 21:00 Dose: Infused Sodium Chloride (Sodium Chloride 0.9%) 1,000 mls @ 75 mls/hr IV .[id number] [facility] Last Admin: 06/21/25 23:02 Dose: 75 mls/hr Prothrombin Complex Concent ( Human) 1,000 unit/ Prothrombin Complex Concent (Human) 500 unit/ N/A 60 mls @ 0 mls/hr IV ONCE ONE Stop: 06/22/25 10:07 Last Admin: 06/22/25 10:33 Dose: 500 mls/hr Levothyroxine Sodium (Levothyroxine 175 Mcg Tablet) 175 mcg PO QAM [facility] Last Admin: 06/22/25 05:46 Dose: 175 mcg Morphine Sulfate (Morphine 4 Mg/Ml Sdv 1 Ml) 2 mg IVP Q4H PRN PRN Reason: SEVERE PAIN Naloxone HCl (Naloxone 0.4 Mg/Ml Sdv) 0.1 mg IVP Q2M PRN PRN Reason: OPIATERV Ondansetron HCl (Ondansetron 2 Mg/Ml Sdv 2 Ml) 4 mg IVP Q8H PRN PRN Reason: vomiting, or N/V if npo Pantoprazole Sodium (Pantoprazole 40 Mg Sdv) 80 mg IVP ONCE ONE Stop: 06/21/25 06:47 Last Admin: 06/21/25 07:13 Dose: 80 mg Pantoprazole Sodium (Pantoprazole 40 Mg Sdv) 40 mg IVP Q12H [facility] Last Admin: 06/22/25 05:46 Dose: 40 mg Polyethylene Glycol/Electrolytes (Peg /E-Lyte Soln 4,000 Ml Btl) 4,000 ml PO ONCE ONE Stop: 06/22/25 08:52 Sodium Chloride (Sodium Chloride 0.9% 100 Ml Bag) 50 ml IV PRN PRN PRN Reason: Blood transfusion prime and flush Stop: 06/22/25 07:42 Last Admin: 06/21/25 09:59 Dose: 50 ml Sodium Chloride (Sodium Chloride 0.9% 50 Ml Bag) 50 ml IV PRN PRN PRN Reason: Blood transfusion prime and flush Stop: 06/22/25 15:33 Sodium Chloride (Sodium Chloride 0.9% 100 Ml Bag) 50 ml IV PRN PRN PRN Reason: Blood transfusion prime and flush Stop: 06/23/25 08:04 Sucralfate (Sucralfate 1 Gm/10 Ml Oral Liq Udc) 1 gm PO Q6H SUNG Last Admin: 06/22/25 06:21 Dose: 1 gm Allergies No Known Allergies Allergy (Verified 06/21/25 06:31) Home Medications vitamins A,C,H-mqmk-zqbztw 4,296 mcg-226 mg-90 mg capsule (PreserVision AREDS) 1 cap PO BID 11/14/19 [History Confirmed 06/21/25] Thumb spica (off shelf) #1 ea 03/13/22 [Rx Confirmed 06/21/25] Spectrum AFO to right #1 ea 12/29/22 [Rx Confirmed 06/21/25] Supinator to right #1 ea 12/29/22 [Rx Confirmed 06/21/25] non articulating AFO #1 ea 03/21/24 [Rx Confirmed 06/21/25] potassium chloride 10 mEq tablet,extended release 10 meq PO DAILY #90 tabs 07/21/24 [Rx Confirmed 06/21/25] apixaban 5 mg tablet (Eliquis) 5 mg PO BID 06/21/25 [History Confirmed 06/21/25] bisoprolol fumarate 5 mg tablet 5 mg PO QAM 06/21/25 [History Confirmed 06/21/25] furosemide 20 mg tablet 20 mg PO BID 06/21/25 [History Confirmed 06/21/25] levothyroxine 175 mcg tablet 175 mcg PO QAM 06/21/25 [History Confirmed 06/21/25] omega-3 fatty acids 1,000 mg capsule 1,000 mg PO QAM 06/21/25 [History Confirmed 06/21/25] omeprazole 20 mg capsule,delayed release 20 mg PO QAM 06/21/25 [History Confirmed 06/21/25] Discharge Plan Discharge Patient Disposition: Xfer Short-Term Hosp Condition: Stable Prescriptions: No Action PreserVision AREDS [id number] duht-gm-iaqe capsule 1 cap PO BID [place] Spectrum AFO to right See Rx Instructions .Route .MEDSUPPLY Qty: 1 0RF Rx Instructions: As directed by [facility] (DME) Supinator to right See Rx Instructions .Route .MEDSUPPLY Qty: 1 0RF Rx Instructions: As directed (DME) Thumb spica (off shelf) See Rx Instructions .Route .MEDSUPPLY Qty: 1 0RF Rx Instructions: As directed (DME) non articulating AFO See Rx Instructions .Route .MEDSUPPLY Qty: 1 0RF Rx Instructions: As directed by the pedro kothari potassium chloride 10 mEq tablet extended release 10 meq PO DAILY Qty: 90 3RF levothyroxine 175 mcg tablet 175 mcg PO QAM omega-3 fatty acids 1,000 mg Capsule 1,000 mg PO QAM bisoprolol fumarate 5 mg tablet 5 mg PO QAM omeprazole 20 mg capsule,delayed release(DR/EC) 20 mg PO QAM furosemide 20 mg tablet 20 mg PO BID Eliquis 5 mg tablet 5 mg PO BID Discharge Order = DC NOW: Discharge Order (Routine); Ordered 06/22/25 Ordered By: Serg Burnett Referrals: Zeny Castillo FNP [Primary Care Provider, [facility]] Transfer Attestations Time Spent in Transfer Care: critical care time Critical Care Time (min): 40 Quality Metrics Clinical Quality Measures [ No reported AMI, CVA or VTE this stay] Coding Level of Care Code Acute Code for Chg Fwd Diagnoses GI bleed K92.2
== END 2025-06-22 12:04 | disposition short-term general hospital (02) | DRG 813 ==
LOC: ER 07:34 → ICU 08:29
PROVIDERS: Internal Medicine; Admitting Provider Family Medicine; Emergency Provider Family Medicine; PCP Nurse Practitioner; Visit Provider Family Medicine
DX: D68.32 Hemorrhagic disorder due to extrinsic circulating anticoagulants (principal); K62.5 Hemorrhage of anus and rectum; R57.9 Shock, unspecified; I48.91 Unspecified atrial fibrillation; D64.9 Anemia, unspecified; T45.515A Adverse effect of anticoagulants, initial encounter; E03.9 Hypothyroidism, unspecified; J45.909 Unspecified asthma, uncomplicated; K21.9 Gastro-esophageal reflux disease without esophagitis; Z86.718 Personal history of other venous thrombosis and embolism; Z79.01 Long term (current) use of anticoagulants; Z79.890 Hormone replacement therapy; Z79.899 Other long term (current) drug therapy; Z90.710 Acquired absence of both cervix and uterus; Z86.73 Personal history of transient ischemic attack (TIA), and cerebral infarction without residual deficits
CPT/HCPCS: 36415; 36430; 36573; 36592; 51702; 71045; 74177; 80048; 80053; 80061; 81001; 82728; 83036; 83540; 83550; 83605; 84443; 84484; 85014; 85018; 85025; 85045; 85610; 85730; 86850; 86900; 86920; 86927; 93005; 93970; 94664; 96374; 99285; A4222; J2470; J2916; J7030; J7168; J7169; J9999; P9016; P9017

== ENCOUNTER 2025-08-01 12:48 | Oncology outpatient (recurring) (ONCR) | payer MEDICARE, OTHER, SELFPAY ==
[2025-08-01 13:50] LABS: Hematocrit 29.0 % (36-47); Hemoglobin 8.80 g/dL (11.27-16.99); Mean Corpuscular HGB Conc 30.3 g/dL (30-55); Mean Corpuscular Hemoglobin 26.3 pg (27-33); Mean Corpuscular Volume 86.8 fl (85-98); Nucleated Red Blood Cells % 0 %; Platelet Count 295 10^3/cmm (157-399); Red Blood Count 3.34 10^6/uL (3.85-5.65); White Blood Count 4.07 10^3/uL (3.29-11.43)
[2025-08-01 14:08] LABS: Albumin Level 3.9 g/dL (3.5-5.2); Alkaline Phosphatase 69 U/L (35-105); Anion Gap 16.0 (5-19); Aspartate Amino Transferase 23 U/L (0-32); Blood Urea Nitrogen 14 mg/dL (8-23); Calcium 9.6 mg/dL (8.5-10.5); Carbon Dioxide 24 mmol/L (22-29); Chloride 106 mmol/L (98-107); Globulin 2.2 g/dL (1.3-4.6); Glucose 88 mg/dL (65-115); Osmolality Calculated 294 mOsm/kg (285-295); Potassium 4.0 mmol/L (3.5-5.1); Sodium 142 mmol/L (136-145); Total Protein 6.1 g/dL (6.6-8.7)
[2025-08-01 14:21] LABS: Alanine Aminotransferase 13 U/L (0-33)
[2025-08-01 14:27] LABS: Ferritin 13 ng/mL (15-150); Iron 18 ug/dL (37-145); Total Iron Binding Capacity 385 mcg/dl; Unsaturated Iron Binding 367 ug/dL (112-347)
[2025-08-01 14:43] LABS: Vitamin B12 274 pg/mL (232-1245)
== END 2025-08-30 23:59 | disposition home or self-care (01) ==
PROVIDERS: PCP Nurse Practitioner; Visit Provider Internal Medicine Medical Oncology
DX: M25.559 Pain in unspecified hip (principal); I82.409 Acute embolism and thrombosis of unspecified deep veins of unspecified lower extremity; Z86.718 Personal history of other venous thrombosis and embolism; I48.91 Unspecified atrial fibrillation; D64.9 Anemia, unspecified
CPT/HCPCS: 36415; 80053; 82607; 82728; 82746; 83540; 83550; 85025; 99205